=== PATIENT | female | born 1960 | race Caucasian/White ===

== ENCOUNTER 2017-11-01 15:18 | Inpatient (IN) | payer OTHER ==
[~2017-11-01] VITALS: Ht 165.1 cm; Wt 104.3 kg
[~2017-11-01 15:18] MED LIST: ABILIFY PO; ABILIFY20 MG PO; ACETAMINOPHEN; ACETAMINOPHEN-1 EAC1 PO; ACYCLOVIR 800800 M1 PO; ADVAIR 250-501 EACH; ADVAIR 250-501 EACH IH; ADVAIR 250-501 EACH INH; ADVAIR 250-501 EACH PO; ALBUTEROL INH; ALBUTEROL INHAL17 GM IH; ALBUTEROL NEB; ALBUTEROL2.5 MG/31; ALBUTEROL2.5 MG/31 IH; ALLEGRA-D 24 H1 EACH PO; AMBEREN PO; AMBIEN 10 MG TA10 MG PO; AMLODIPINE BESY10 MG; APAP500; APAP500 PO; B COMPLEX WITH1 EACH PO; B COMPLEX-VITA1 EACH; B-COMPLEX 100400 MC1 PO; BENZONATATE100 MG; BENZTROPINE MESY2 MG; BENZTROPINE MESY2 MG PO; BISA-LAX5 MG PO; BUTALBITAL-APA1 EAC1 PO; CALTRATE-600 W1 EACH PO; CELEBREX 200 M200 MG PO; CINNAMON; CINNAMON PO; CIPROFLOXACIN500 M1 PO; CLONAZEPAM 1 MG1 M1; CLONAZEPAM 1 MG1 M1 PO; CRESTOR; CRESTOR20 MG; CRESTOR20 MG PO; CYMBALTA PO; CYMBALTA30 MG PO; CYMBALTA60 MG; CYMBALTA60 MG PO; DESYREL100 MG; DESYREL100 MG PO; DESYREL50 MG PO; DIAZEPAM 2MG TAB2 MG PO; DIAZEPAM 5 MG5 M1 PO; DILTIAZEM 24HR180 MG PO; DILTIAZEM ER120 M1 PO; DILTIAZEM ER180 M1; DIPHENHYDRAMINE25 M3 PO; DOXYCYCLINE 10100 MG PO; DULCOLAX; DULCOLAX5 MG PO; ECONAZOLE NITRA85 GM; FIORICET 50-321 EACH; FIORICET 50-321 EACH PO; FIORICET PO; FISH OIL 1,0001 EAC7 PO; FISH OIL 1,001000 M1; FISH OIL 1,001000 M1 PO; FISHOIL; FLAXSEED OIL1000 MG; FLAXSEED OIL1000 MG PO; FLONASE 0.05%50 MCG NASAL; FUROSEMIDE 80 M80 MG PO; GABAPENTIN100 MG PO; GERI-LANTA LIQ355 ML; GLIPIZIDE ER10 MG; GLIPIZIDE ER10 MG PO; GLIPIZIDE XL10 MG PO; GLUCOPHAGE1000 MG PO; GLUCOPHAGE500 MG PO; GLUCOTROL10 MG PO; GLUMETZA500; GLUMETZA500 PO; GLYCOLAX POWDER17 G1 PO; HYDROCODON-ACE1 EAC7; HYDROCODON-ACE1 EAC8 PO; HYDROCODONE-AP1 EAC6; HYDROXYZINE; HYDROXYZINE HCL50 MG PO; HYDROXYZINE PAM50 MG PO; IBUPROFEN 600600 M1 PO; IMITREX 50 MG T50 M1 PO; IMODIUM A-D1 MG/5 ML PO; IMODIUM ADVANC1 EAC1 PO; INVEGA9 MG PO; IRON325; JANUVIA 50 MG T50 M1; JANUVIA100 MG PO; KENALOG60 GM; KETOCONAZOLE60 GM; LAMICTAL XR100 MG PO; LAMOTRIGINE25 M2 PO; LEVOTHROID; LEVOTHROID PO; LEVOTHYROXIN0.175 MG; LEVOTHYROXINE0.05 MG PO; LIDODERM 5%1 PATC1; LIDODERM 5%1 PATCH TOP; LOPERAMIDE 2 MG2 M1 PO; LOPRESSOR 12.12.5 MG PO; LORATIDINE 10 M10 M1 PO; LORAZEPAM 1 MG T1 M1 PO; LORTABELXR PO; LOXAPINE50 MG PO; MAGNES; MAGNES PO; MAGNESIUM250 M1 PO; MECLIZINE HCL12.5 MG PO; MIDRIN CAPSULE1 CAP PO; MIRALAX255 GM; MIRALAX255 GM PO; MOBIC7.5 MG PO; MOM; MOM PO; MUCINEX D TABL1 EACH PO; MUCINEX600 MG PO; MULTIVITAMINS PO; MYLANTA 12 OZ355 M1; MYLANTA 12 OZ355 M1 PO; NAPRELAN500 M1 PO; NAPROSYN500 MG PO; NEURONTIN 400400 M1; NEURONTIN 400400 M1 PO; NEURONTIN600 MG PO; NEXIUM40 MG; NEXIUM40 MG PO; NIACIN 500 MG500 M1 PO; NIACOR500 MG PO; NIZORAL120 ML; NORCO 5-325 TA1 EACH; NORCO 5-325 TA1 EACH PO; NOVOLOG100 UNIT/1; OXYCODONE HCL5 M1 PO; OYSTER SHELL C1 EA12; OYSTER SHELL C1 EA12 PO; PERCOCET 5-3251 EACH PO; PLAVIX; PLAVIX 75 MG TA75 M1 PO; POTASSIUM20 PO; PREDNISONE 10 M10 MG PO; PREDNISONE50 MG PO; PREMARIN; PREMARIN0.625 MG PO; PREMARIN0.9 M1; PREMARIN0.9 MG PO; PRINIVIL; PRINIVIL10 MG PO; PRINIVIL20 MG PO; PROAIR HFA8.5 GM INH; PROTONIX40 M2 PO; PROVENTIL; PROVERA5 MG PO; QUALAQUIN324 MG; QUALAQUIN324 MG PO; QUESTRAN LIGHT P4 GM PO; QUININE; ROBITUSSIN15 MG/5 M1 PO; ROZEREM 8 MG TAB8 MG PO; SENEXON-S TABL1 EACH; SENNA PO; SEROQUEL200 MG PO; SKELAXIN 800 M800 M1 PO; SYMBICORT160 MCG/4.; SYNTHROID100 MCG PO; SYSTANE 0.3-0.1 EACH OPHTHALMIC; SYSTANE GEL10 GM; TESSALON PERLE100 MG PO; TIROSINT100 MCG PO; TRAZODONE HCL50 MG PO; TRIAMCINOLONE A15 G1; VALIUM2 MG PO; VALIUM5 MG PO; VENTOLIN HFA INH8 GM; VENTOLIN17 GM; VENTOLIN17 GM INH; VISTARIL PO; VITAMIN A & D OI2 OZ; VITAMIN D-32000 UNIT; VITAMIN D1000 UNI1 PO; VITAMIN D31000 UNI2 PO; ZANTAC 150MG T150 M1 PO; ZPAK; ZPAK PO; ZYRTEC10 M2 PO; [UNRECOGNIZED DRUG - OTHER]; [UNRECOGNIZED DRUG - OTHER]; [UNRECOGNIZED DRUG - OTHER] PO; [UNRECOGNIZED DRUG - OTHER] TP
[2017-11-01 15:34] VITALS: BP 122/69
[2017-11-01 16:39] LABS: ABSOLUTE NEUTROPHILS 6.8 thou/uL (1.4-8.2); HEMATOCRIT 43.7 % (37.0-47.0); HEMOGLOBIN 14.9 gm/dL (12.0-15.0); MCH 32.4 pg (26.0-34.0); MCHC 34.1 g/dL (28.0-37.0); MCV 94.8 fL (80.0-100.0); PLATELET COUNT 267 thou/uL (150-400); RBC 4.61 mil/uL (4.20-5.00); RDW 14.2 % (10.5-14.5); WBC 8.7 thou/uL (4.0-11.0)
[2017-11-01 16:52] LABS: CALCIUM 9.5 mg/dL (8.5-10.1); CREATININE 1.2 mg/dL (0.6-1.0); POTASSIUM 4.6 mmol/L (3.5-5.1)
[2017-11-01 18:04] LABS: URINE BILIRUBIN NEGATIVE (Negative); URINE BLOOD NEGATIVE (Negative); URINE CLARITY CLEAR; URINE COLOR YELLOW; URINE GLUCOSE-RANDOM* 3+ (Negative); URINE KETONES NEGATIVE (Negative); URINE LEUKOCYTES-REFLEX NEGATIVE (Negative); URINE PROTEIN (DIPSTICK) NEGATIVE (Negative); URINE SPECIFIC GRAVITY 1.015 (1.005-1.035); URINE UROBILINOGEN 0.2 E.U./dl (0.2-1.0)
[2017-11-01 18:09] LABS: URINE NITRITE-REFLEX POSITIVE (Negative)
[2017-11-01 18:17] LABS: CASTS None Seen /LPF (None Seen); CRYSTALS None Seen /LPF (None Seen); SQUAMOUS 0-3 Few /LPF (0-3)
[2017-11-01 18:18] LABS: URINE WBC-REFLEX 6-15 Few /HPF (0-5)
[2017-11-01 18:19] LABS: BACTERIA-REFLEX >30 Many /HPF (None Seen); URINE RBC None Seen /HPF (0-2)
[2017-11-01] MEDS ORDERED: SYNTHROID88 MCG PO (18:37)
[2017-11-01] MEDS ORDERED: MAGOX 400400 MG PO (18:38)
[2017-11-01] MEDS ORDERED: MICONAZOLE 3 2200 M1 VAG (18:39)
[2017-11-01] MEDS ORDERED: LOXAPINE10 MG PO (18:41)
[2017-11-01] MEDS ORDERED: TOPROL XL25 MG PO (18:42)
[2017-11-01] MEDS ORDERED: DEPAKOTE ER500 MG PO (18:44)
[2017-11-01] MEDS ORDERED: ZOCOR20 MG PO (18:45)
[2017-11-01] MEDS ORDERED: QUETIAPINE FUM100 MG PO (18:46)
[2017-11-01] MEDS ORDERED: TOPAMAX 100 MG100 MG PO (18:47)
[2017-11-01] MEDS ORDERED: DULCOLAX5 MG PO (18:47)
[2017-11-01] MEDS ORDERED: PHENERGAN 25 MG25 M1 PO (18:57)
[2017-11-01] MEDS ORDERED: IBUPROFEN 800800 M1 PO (18:57)
[2017-11-01] MEDS ORDERED: SEROQUEL 50 MG50 MG PO (18:58)
[2017-11-01] MEDS ORDERED: ATIVAN1 MG PO (19:03)
[2017-11-01] MEDS ORDERED: PULMICORT0.5 MG/22 INH (19:04)
[2017-11-01] MEDS ORDERED: HUMALOG100 UNIT/1 SUBQ (19:05)
[2017-11-01] MEDS ORDERED: LANTUS100 UNIT/M SUBQ (19:05)
[2017-11-01] MEDS ORDERED: NOVOLOG100 UNIT/1 SUBQ (19:09)
[2017-11-01] MEDS ORDERED: TRAMADOL 50 MG50 MG PO (19:10)
[2017-11-01] MEDS ORDERED: NYAMYC15 GM TOP (19:11)
[2017-11-01] MEDS ORDERED: DUONEB 2.5-0.5 M3 ML INH (19:13)
[2017-11-01] MEDS ORDERED: LMX 430 GM (19:15)
[2017-11-01] MEDS ORDERED: COLACE100 MG PO (19:16)
[2017-11-01 20:19] VITALS: BP 137/75
[2017-11-01 22:50] LABS: TSH 2.593 uIU/mL (0.358-3.740)
[2017-11-02 00:02] VITALS: BP 131/76
[2017-11-02 00:02] LABS: BE(vivo) 5.9 mmol/L (-2 to +3); HCO3 31.9 mmol/L (22.0-26.0); PCO2 52.1 mmHg (35.0-45.0); PO2 108.5 mmHg (80.0-100.0); pH 7.405 (7.360-7.450); sO2 97.9 % (92.0-98.0)
[2017-11-02] MEDS ORDERED: CLONAZEPAM 1 MG1 M1 PO (01:21)
[2017-11-02] MEDS ORDERED: LASIX 80 MG TAB80 MG PO (01:23)
[2017-11-02 03:06] VITALS: BP 131/94
[2017-11-02 08:12] VITALS: BP 126/71
[2017-11-02 11:16] VITALS: BP 127/69
[2017-11-02 17:28] VITALS: BP 143/77
[2017-11-03 03:56] VITALS: BP 112/87
[2017-11-03 05:23] LABS: HEMATOCRIT 33.3 % (37.0-47.0); MCH 30.6 pg (26.0-34.0); MCHC 33.2 g/dL (28.0-37.0); PLATELET COUNT 224 thou/uL (150-400); RBC 3.62 mil/uL (4.20-5.00); RDW 14.5 % (10.5-14.5); WBC 8.8 thou/uL (4.0-11.0)
[2017-11-03 05:27] LABS: HEMOGLOBIN 11.1 gm/dL (12.0-15.0)
[2017-11-03 05:36] LABS: MAGNESIUM 1.6 mg/dL (1.8-2.4); POTASSIUM 4.1 mmol/L (3.5-5.1)
[2017-11-03 07:29] VITALS: BP 119/52
[2017-11-03 08:16] LABS: ABSOLUTE NEUTROPHILS 5.5 thou/uL (1.4-8.2); METAMYELOCYTES 3 %
[2017-11-03 08:17] LABS: ANISOCYTOSIS SLIGHT
[2017-11-03 11:33] VITALS: BP 131/84
[2017-11-03 15:12] VITALS: BP 116/59
[2017-11-03 19:26] VITALS: BP 130/58
[2017-11-04 04:05] VITALS: BP 128/77
[2017-11-04 06:01] LABS: HEMATOCRIT 30.1 % (37.0-47.0); HEMOGLOBIN 10.1 gm/dL (12.0-15.0); MCH 31.1 pg (26.0-34.0); MCHC 33.7 g/dL (28.0-37.0); MCV 92.3 fL (80.0-100.0); RBC 3.26 mil/uL (4.20-5.00); RDW 14.4 % (10.5-14.5)
[2017-11-04 06:15] LABS: CALCIUM 8.8 mg/dL (8.5-10.1); CREATININE 0.8 mg/dL (0.6-1.0); POTASSIUM 3.9 mmol/L (3.5-5.1)
[2017-11-04 07:30] VITALS: BP 126/77
[2017-11-04 11:30] VITALS: BP 140/80
[2017-11-04] MEDS ORDERED: BACTRIM DS TAB1 EACH PO (14:15)
[2017-11-04] MEDS ORDERED: DEPAKOTE500 MG PO (14:16)
== END 2017-11-04 17:41 | DRG 683 ==
LOC: ER 15:18 → 3W 19:36 → EROBS 19:36 → 3W 20:22
PROVIDERS: Emergency Medicine; Hospitalist; Nurse Practitioner; Nurse Practitioner Acute Care
DX: N17.9 Acute kidney failure, unspecified (principal); N39.0 Urinary tract infection, site not specified; E11.65 Type 2 diabetes mellitus with hyperglycemia; E03.9 Hypothyroidism, unspecified; E78.5 Hyperlipidemia, unspecified; I10 Essential (primary) hypertension; F31.9 Bipolar disorder, unspecified; F25.0 Schizoaffective disorder, bipolar type; F41.9 Anxiety disorder, unspecified; J44.9 Chronic obstructive pulmonary disease, unspecified; M19.90 Unspecified osteoarthritis, unspecified site; B99.8 Other infectious disease; Z16.39 Resistance to other specified antimicrobial drug; Z86.73 Personal history of transient ischemic attack (TIA), and cerebral infarction without residual deficits; Z79.4 Long term (current) use of insulin; Z88.6 Allergy status to analgesic agent; Z88.1 Allergy status to other antibiotic agents; Z88.0 Allergy status to penicillin; Z88.8 Allergy status to other drugs, medicaments and biological substances
CPT/HCPCS: 10779

== ENCOUNTER 2018-06-13 12:18 | Inpatient (IN) | payer OTHER ==
[~2018-06-13] VITALS: Ht 154.9 cm; Wt 81.6 kg
[2018-06-13 12:18] VITALS: BP 145/74
[~2018-06-13 12:18] MED LIST changes: -AMLODIPINE BESY10 MG; +AMLODIPINE BESY10 MG PO; +ATIVAN1 MG PO; +BACTRIM DS TAB1 EACH PO; +COLACE100 MG PO; +DEPAKOTE ER500 MG PO; +DEPAKOTE500 MG PO; +HUMALOG100 UNIT/1 SUBQ; +IBUPROFEN 800800 M1 PO; +IPRAT-ALBUT 0.5-3 ML INH; +LANTUS100 UNIT/M SUBQ; +LASIX 80 MG TAB80 MG PO; +LMX 430 GM; +LOXAPINE10 MG PO; +MAGOX 400400 MG PO; +MICONAZOLE 3 2200 M1 VAG; +NOVOLOG100 UNIT/1 SUBQ; +NYAMYC15 GM TOP; +PHENERGAN 25 MG25 M1 PO; +PULMICORT0.5 MG/22 INH; +QUETIAPINE FUM100 MG PO; -SENEXON-S TABL1 EACH; +SENEXON-S TABL1 EACH PO; +SEROQUEL 50 MG50 MG PO; +SYNTHROID100 MC1 PO; +TOPAMAX 100 MG100 MG PO; +TOPROL XL25 MG PO; +TRAMADOL 50 MG50 MG PO; +ZOCOR20 MG PO
[2018-06-13 12:51] LABS: HEMATOCRIT 44.7 % (37.0-47.0); HEMOGLOBIN 14.8 gm/dL (12.0-15.0); MCH 29.8 pg (26.0-34.0); MCHC 33.2 g/dL (28.0-37.0); MCV 89.8 fL (80.0-100.0); PLATELET COUNT 167 thou/uL (150-400); RBC 4.97 mil/uL (4.20-5.00); RDW 16.5 % (10.5-14.5); WBC 9.9 thou/uL (4.0-11.0)
[2018-06-13 12:57] LABS: ANION GAP 6 mmol/L (7-16); BUN 27 mg/dL (7-18); CALCIUM 9.8 mg/dL (8.5-10.1); CHLORIDE 101 mmol/L (98-107); CO2 34 mmol/L (21-32); CREATININE 1.5 mg/dL (0.6-1.0); GLUCOSE 158 mg/dL (74-106); POTASSIUM 5.3 mmol/L (3.5-5.1); SODIUM 141 mmol/L (136-145)
[2018-06-13 13:06] LABS: ALBUMIN 3.4 g/dL (3.4-5.0); MAGNESIUM 1.7 mg/dL (1.8-2.4); SGOT 14 U/L (15-37); SGPT 13 U/L (30-65); TOTAL BILIRUBIN 0.3 mg/dL (<0.1-1.0); TOTAL PROTEIN 8.9 g/dL (6.4-8.2); TROPONIN-I <0.06 ng/mL (<0.06)
[2018-06-13 13:17] LABS: ABSOLUTE NEUTROPHILS 7.6 thou/uL (1.4-8.2); PLATELET ESTIMATE NORMAL
[2018-06-13 13:19] LABS: URINE BILIRUBIN NEGATIVE (Negative); URINE BLOOD NEGATIVE (Negative); URINE CLARITY CLEAR; URINE COLOR YELLOW; URINE GLUCOSE-RANDOM* NEGATIVE (Negative); URINE KETONES TRACE (Negative); URINE LEUKOCYTES-REFLEX NEGATIVE (Negative); URINE NITRITE-REFLEX POSITIVE (Negative); URINE PROTEIN (DIPSTICK) NEGATIVE (Negative); URINE SPECIFIC GRAVITY 1.015 (1.005-1.035); URINE UROBILINOGEN 0.2 E.U./dl (0.2-1.0)
[2018-06-13 13:23] LABS: BACTERIA-REFLEX >30 Many /HPF (None Seen); HYALINE CASTS 0-3 Few /LPF (None Seen); SQUAMOUS 0-3 Few /LPF (0-3)
[2018-06-13 13:24] LABS: CRYSTALS None Seen /LPF (None Seen); URINE RBC None Seen /HPF (0-2); URINE WBC-REFLEX 0-5 Rare /HPF (0-5)
[2018-06-13] MEDS ORDERED: UNICOMPLEX M TA1 TA1 PO (13:28)
[2018-06-13 13:29] LABS: AMP/METHAMP Negative (Negative); BARBITURATES Negative (Negative); BENZODIAZEPINES POSITIVE (Negative); COCAINE Negative (Negative); METHADONE Negative (Negative); OPIATES Negative (Negative); PCP Negative (Negative)
[2018-06-13] MEDS ORDERED: ALLEGRA-D 12 H1 EAC1 PO (13:29)
[2018-06-13] MEDS ORDERED: VITAMINC500 PO (13:29)
[2018-06-13] MEDS ORDERED: OXYBUTYNIN ER 55 M1 PO (13:29)
[2018-06-13] MEDS ORDERED: HALOPERIDOL10 MG PO (13:30)
[2018-06-13] MEDS ORDERED: LEVSIN-SL0.125 MG SUBLING (13:33)
[2018-06-13] MEDS ORDERED: LOPERAMIDE 2 MG2 M1 PO (13:33)
--- NOTE | 2018-06-13 13:40 | EKG ---
[place] [address] [facility] [place] [address] ELECTROCARDIOGRAM REPORT Name: IRENE SIMS [facility] [id number] Admission: 06/13/18 Attend Phys: Discharge: Date of : 58 Report #: [id number] THIS REPORT FOR: //name// [facility] ED Test Date: 2018-06-13 Test Time: 12:41:15 Pat Name: IRENE SIMS Department: Room: Gender: F Radiographic Technologist: YESSENIA : 1960 Requested By: Jose Kelly Order Number: [id number] MD: Corey Juan Measurements Intervals [place] Rate: 101 P: 56 NC: 187 QRS: 39 QRSD: 150 T: -26 QT: 403 QTc: 523 Interpretive Statements Sinus tachycardia Right bundle branch block Compared to ECG 09/30/2017 13:04:10 Sinus rhythm no longer present Electronically Signed On 06-13-2018 13:40:48 BRAZER PRODUCTION LINE by Corey Juan [email or web address] <ELECTRONICALLY SIGNED> By: Corey Juan MD 06/13/18 1340 1241 1241 Corey Juan MD /[place]
[2018-06-13] MEDS ORDERED: NOVOLOG100 UNIT/1 SUBQ (14:15)
[2018-06-13] MEDS ORDERED: LIDOCAINE TOP (14:19)
[2018-06-13] MEDS ORDERED: CYMBALTA60 MG PO (14:20)
[2018-06-13] MEDS ORDERED: NYAMYC15 GM TOP (14:20)
[2018-06-13 14:36] VITALS: BP 128/64
[2018-06-13 15:56] VITALS: BP 132/66
--- NOTE | 2018-06-13 16:47 | NUR ---
ADM PT CAME IN FROM ER. A/O X4, CALM AND COOPERATIVE. PT ORIENTED TO ROOM. WILL CONTINUE TO MONITOR.
[2018-06-13 17:00] VITALS: BP 116/68
[2018-06-13 19:46] VITALS: BP 130/71
[2018-06-14 03:00] VITALS: BP 116/55
--- NOTE | 2018-06-14 06:00 | NUR ---
Pt. rested quietly at intervals during the night when checked on during frequent rounds. She did start to become restless this am and was yelling out for her parents. Calmed down later. Bed alarm is on.
[2018-06-14 07:45] VITALS: BP 122/55
[2018-06-14 08:48] LABS: CALCIUM 8.8 mg/dL (8.5-10.1); CREATININE 1.1 mg/dL (0.6-1.0)
--- NOTE | 2018-06-14 11:36 | NUR ---
TOWARDS POC PT A/O X4. CONFUSED AT TIMES. EASILY REORIENTED, CALM AND COOPERATIVE. OUT 1000, VOIDING WELL. WOUND CARE AND DRESSING DONE. HOME MEDS GIVEN, TOLERATING WELL. WILL CONTINUE TO MONITOR.
[2018-06-14 13:55] VITALS: BP 143/67
--- NOTE | 2018-06-14 14:23 | NUR ---
PT ADMITTED RELATED TO AMS, DEHYDRATION. CM REVIEWED CHART AND SPOKE WITH CARE TEAM. CM MET WITH PT AT BEDSIDE THIS DAY. PT IS A&O X4. CM ROLE INTRODUCED. PT INDICATED SHE LIVES AT [facility]. 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 PT INDICATED SHE PLANS TO RETURN TO [facility] ONCE MEDICALLY STABLE. CM CALLED AND SPOKE WITH PT'S SON GRACE AND HE CONFIRMED THE ABOVE. CM SENT CLINICAL UPDATE TO [facility]. CM TO FOLLOW INDICATED WITH DC PLANNING.
--- NOTE | 2018-06-14 14:32 | NUR ---
WOUND CONSULT: PT. WAS SEEN TODAY BY DR. RIOS AND MYSELF. PT. HAS AN UNSTAGABLE PRESSURE ULCER TO HER SACRUM. PT. WOUND IS WET AND MOIST AT THIS TIME BUT, NO SIGNIFICANT SIGNS OF INFECTION NOTED. RECOMMENDATIONS: WOUND CARE TO SACRUM: GENTLY CLEANSE AREA WITH WOUND CLEANSER OR NORMAL SALINE, PACK WITH DAKIN SOAKED KERLIX, COVER WITH ABD, SECURE WITH TAPE, COMPLETE CARES BID. TURN Q2 HOURS KEEP PT. OFF WOUNDS MUCH POSSIBLE KEEP ON SHERMAN MATRESS. PT. AND STAFF NURSE WERE INSTRUCTED ON WOUND CARE.
[2018-06-14 19:47] VITALS: BP 139/61
[2018-06-15 03:59] VITALS: BP 125/58
[2018-06-15 07:15] VITALS: BP 141/64
--- NOTE | 2018-06-15 07:16 | NUR ---
Psych consult called to Dr. Soni's office and fax facesheet to [phone] per instruction. Pt. has slept well during the night. She has been calm and cooperative. O2 at 2L/NC ( baseline) and maintaining O2 sat in the upper 90's. Denies shortness of breath. She has been assisted to reposition. Wound care done at . Bed alarm on. Will continue to monitor.
--- NOTE | 2018-06-15 07:39 | HC ---
[facility] [place] [address] CONSULTATION Name: IRENE SIMS Room #: 454-P [facility] IN .R.#: [id number] Admission: 06/13/18 Attend Phys: Karl Biswas MD Discharge: Date of : 58 Report #: [id number] THIS REPORT FOR: //name// CC: Karl Sumner DATE OF SERVICE: 06/14/2018 CHIEF COMPLAINT: Sacral pressure ulceration. HISTORY OF PRESENT ILLNESS: This is a 58-year-old female patient admitted to the hospital with mental status changes and some evidence of acute kidney injury. She is noted to have a sacral pressure ulceration. I have been asked to see her in this regard. The patient is not able to provide much information about herself. She does seem to indicate that she has pain in her sacral region. It is unknown as to when this problem area began. She was originally admitted with mental status changes and lethargy and poor oral intake. PAST MEDICAL HISTORY: Positive for type 2 diabetes mellitus, hypothyroidism, hyperlipidemia, hypertension, history of CVA, bipolar disorder, PTSD, schizophrenia, anxiety, COPD. FAMILY HISTORY: Unobtainable. SOCIAL HISTORY: Negative per her chart, negative for alcohol or tobacco use. ALLERGIES: Include MACRODANTIN, AVELOX, ACETAMINOPHEN, AMOXICILLIN, BENZTROPINE, CODEINE, LITHIUM, PENICILLIN, RISPERDAL, SERTRALINE, ZIPRASIDONE, COMPAZINE, IBUPROFEN, ASPIRIN. MEDICATIONS: Include clonazepam, hydroxyzine, amlodipine, furosemide, trazodone, Senexon, Synthroid, Toprol-XL, Seroquel, Motrin, NovoLog, ipratropium and albuterol, oxybutynin, Lindsey, Levsin, Imodium, NovoLog, nystatin powder, Cymbalta, ProAir, Protonix, Neurontin, Glucophage, Flonase, K-Dur, Mag-Ox, Zocor, Dulcolax, Phenergan, Pulmicort, Lantus, Ultram, Colace, Unicomplex-M, vitamin C and haloperidol. REVIEW OF SYSTEMS: Unobtainable due to the patient's mental status. PHYSICAL EXAMINATION: VITAL SIGNS: At this time include pulse 94, respiratory rate 18, blood pressure 143/67, temperature 98.4. GENERAL: This is a chronically ill-appearing female patient who appears to be in minimal distress. HEENT: Head normocephalic. Nose and throat are clear. NECK: [place] [id number] CONSULTATION Name: IRENE SIMS Room #: 454-P [facility] IN [facility]#: [id number] Admission: 06/13/18 Attend Phys: Karl Biswas MD Discharge: Date of : 58 Report #: [id number] LUNGS: Clear. HEART: Regular rhythm. ABDOMEN: Soft. Bowel sounds present. EXTREMITIES: Sacral gluteal region demonstrates an unstageable pressure ulcer of the sacral gluteal region. It appears to be mostly superficial. There is a little bit of necrotic tissue on the surface that is wiped away with 4 x 4 gauze. The patient has no tunneling, undermining or exposure of deep structures that are observable. Tissue does not feel boggy or appear to be infected. EXTREMITIES: Lower extremities without evidence of ulceration. NEUROLOGIC: The patient seems to move symmetrically. She is disoriented or confused. LABORATORY DATA: Sodium 140, potassium 4.0, chloride 102, CO2 of 34, BUN 21, creatinine 1.1, glucose 132, calcium is 8.8. White blood cell count 9.9 with hemoglobin 14.8. CLINICAL IMPRESSION: 1. Unstageable sacral pressure ulceration. 2. Acute mental status changes. 3. Type 2 diabetes mellitus. 4. Dehydration, likely secondary to poor oral intake. 5. Mental health issues detailed above. RECOMMENDATIONS: At this point in time, we will use quarter strength Dakin's moist gauze dressing b.i.d. to the sacral region. She will need a low air loss mattress and q. 2 hour turning and repositioning. She will need aggressive nutritional support to encourage wound healing and maintain ideal glycemic control. I am not sure that she requires a surgical debridement at this point in time. We will follow her along and see how she does after "cleaning her up" with some dressing changes. I appreciate being asked to see her in consultation. <ELECTRONICALLY SIGNED> By: Cyril Looney MD 06/15/18 0739 1807 2234 Cyril Looney MD /nt
--- NOTE | 2018-06-15 09:59 | NUR ---
WOUND FOLLOW UP: PT. WAS SEEN TODAY BY DR. DAMIAN AND MYSELF. PT. WOUND TO HER SACRUM IS RESPONDING WELL TO THE DAKIN'S. IT IS NOT MOIST YESTERDAY'S ASSESMENT. RECOMMENDATIONS: CONTINUE WITH CURRENT PLAN OF CARE. PT. AND STAFF NURSE WERE INSTRUCTED ON PLAN OF CARE.
--- NOTE | 2018-06-15 11:54 | NUR ---
PATIENT A/OF FROM [facility], PAIN IN SACRAL AREA RELATING WOUND. EXTERNAL FEMALE CATHETER IN PLACE. PT STATES SHE USES A WHEELCHAIR AT FACILITY. DENIES HALLUCINATIONS.PT STATES SHE HEARS VOICES WILL CONTINUE TO MONITOR. STAFF MADE AWARE OF PT HEARING VOICES. TURNED Q2HR TOLERATED. INDEPENTENT WITH MEALS. USES CALL LIGHT APPROPRIATELY. CALL LIGHT IN REACH.
[2018-06-15 15:09] VITALS: BP 138/53
[2018-06-15 20:30] VITALS: BP 116/48
--- NOTE | 2018-06-16 03:04 | NUR ---
Assumed care at 1845. Pt denies chest pain. She uses wheelchair at facility but she has been bed bound. Sacral wound dressing has been changed. Shes AOX2. She is on 2L NC. Has an external female catheter. ACHS. She hasnt stated that she has been hearing voices like the previous nurse had mentioned. Gave fentnyl for pain. Bed is in lowest position. Call light within reach. Will continue to monitor.
[2018-06-16 03:59] VITALS: BP 126/58
[2018-06-16 07:29] VITALS: BP 132/54
--- NOTE | 2018-06-16 11:50 | NUR ---
WOUND FOLLOW UP: PT. WAS SEEN TODAY BY DR. RIOS AND MYSELF. PT. WOUND IS CLINICALLY BETTER TODAY. RECOMMENDATIONS: CONTINUE WITH CURRENT PLAN OF CARE. PT. AND STAFF NURSE WERE INSTRUCTED ON PLAN OF CARE.
--- NOTE | 2018-06-16 14:50 | NUR ---
CARE TEAM INDICATED THAT THEY ANTICIPATE PT WILL LIKELY BE MEDICALLY STABLE TO DISHCARGE BACK TO [facility] TOMORROW. CM TO FOLLOW INDICATED WITH DC PLANNING.
[2018-06-16 15:00] VITALS: BP 117/52
[2018-06-16 19:17] VITALS: BP 126/60
--- NOTE | 2018-06-16 19:51 | NUR ---
QUIET UNEVENTFUL DAY FOR THIS NICE LADY. TURNED Q2H. SACRAL DECUB DRESSING CHANGED. MEDICATED WITH FENTANYL FOR WOUND PAIN AND HAD COMPLETE RELIEF. TOLERATING DIET WELL. GOOD URINE OUTPUT NOTED. EXTERNAL URINARY CATHETER IN PLACE. FALL PRECAUTIONS IN PLACE.
[2018-06-17 03:18] VITALS: BP 108/54
--- NOTE | 2018-06-17 04:39 | NUR ---
Pt. rested quietly at intervals during the night when checked on during frequent rounds. She does c/o sacral pain and was given pain meds (see emar) with some relief noted. Treatment done to sacral wound as ordered.
[2018-06-17 07:15] VITALS: BP 105/56
[2018-06-17 08:02] VITALS: BP 105/56
--- NOTE | 2018-06-17 08:12 | NUR ---
PT PROGRESSING TOWARDS GOALS. PAIN MANAGED WITH MED PRN, TURN Q2H TOLERATED. WOUND CARE PROVIDED.FEMAL EXTERNAL CATHETER FOR INCONTINENCE PLANS TO DC BACK TO [facility]. BED LOCKED, ALARM SET. CALL LIGHT IN REACH.
[2018-06-17] MEDS ORDERED: SEROQUEL 100 M100 M2 PO (08:18)
--- NOTE | 2018-06-17 09:56 | NUR ---
WOUND FOLLOW UP: PT. WAS SEEN TODAY BY DR. RIOS AND MYSELF. PT. WOUND IS CLINICALLY BETTER TODAY. IT IS PROGRESSING TOWARDS HEALING. RECOMMENDATIONS: CONTINUE WITH CURRENT PLAN OF CARE. PT. AND STAFF NURSE WERE INSTRUCTED ON PLAN OF CARE.
--- NOTE | 2018-06-17 12:08 | NUR ---
DISCHARGE ORDERS RECEIVED. PATIENT DISCHARGING TO [facility]. CHART COPIED PER SLOTS MANAGER. ORDERS FAXED TO PRANAY GAITAN FOR [facility]. VERIFIED ORDERS RECEIVED. PER LUCÍA, DISPATCH WITH [email or web address], TRANSPORT TIME FOR PATIENT [id number] HOURS, TRIP #[id number]. [email or web address] DISPATCH CONTACT NUMBER IS . UNIT SW NOTIFIED. UNIT RN NOTIFIED AND CONTACT NUMBER FOR REPORT PROVIDED.
== END 2018-06-17 13:08 | DRG 683 ==
LOC: ER 12:18 → EROBS 14:06 → 4W 16:32
PROVIDERS: Emergency Medicine; ADMIT Hospitalist
DX: N17.9 Acute kidney failure, unspecified (principal); N39.0 Urinary tract infection, site not specified; E11.9 Type 2 diabetes mellitus without complications; E03.9 Hypothyroidism, unspecified; E78.5 Hyperlipidemia, unspecified; I10 Essential (primary) hypertension; F31.9 Bipolar disorder, unspecified; F41.9 Anxiety disorder, unspecified; J44.9 Chronic obstructive pulmonary disease, unspecified; J45.909 Unspecified asthma, uncomplicated; E86.0 Dehydration; E87.5 Hyperkalemia; L89.150 Pressure ulcer of sacral region, unstageable; F20.9 Schizophrenia, unspecified; E66.9 Obesity, unspecified; M19.90 Unspecified osteoarthritis, unspecified site; Z88.6 Allergy status to analgesic agent; Z88.1 Allergy status to other antibiotic agents; Z88.0 Allergy status to penicillin; Z88.8 Allergy status to other drugs, medicaments and biological substances; Z79.899 Other long term (current) drug therapy; Z86.73 Personal history of transient ischemic attack (TIA), and cerebral infarction without residual deficits; Z79.4 Long term (current) use of insulin; Z68.34 Body mass index [BMI] 34.0-34.9, adult
CPT/HCPCS: 10045; 10047

== ENCOUNTER 2018-09-19 20:09 | Inpatient (IN) | payer OTHER ==
[~2018-09-19] VITALS: Ht 165.1 cm; Wt 89.2 kg
[~2018-09-19 20:09] MED LIST changes: +ALLEGRA-D 12 H1 EAC1 PO; +HALOPERIDOL10 MG PO; +LEVSIN-SL0.125 MG SUBLING; +LIDOCAINE TOP; +OXYBUTYNIN ER 55 M1 PO; +SEROQUEL 100 M100 M2 PO; +UNICOMPLEX M TA1 TA1 PO; +VITAMINC500 PO
[2018-09-19 20:11] VITALS: BP 124/67
[2018-09-19] MEDS ORDERED: LASIX 80 MG TAB80 MG PO (20:22)
[2018-09-19] MEDS ORDERED: MAGOX 400400 MG PO (20:22)
[2018-09-19] MEDS ORDERED: POTASSIUM20 PO (20:23)
[2018-09-19] MEDS ORDERED: ALLEGRA-D 12 H1 EAC1 PO ×2 (20:24→23:23)
[2018-09-19] MEDS ORDERED: HALOPERIDOL10 MG PO (20:25)
[2018-09-19] MEDS ORDERED: HYDROXYZINE HCL25 M1 PO (20:26)
[2018-09-19] MEDS ORDERED: SEROQUEL400 MG PO (20:28)
[2018-09-19] MEDS ORDERED: IBUPROFEN 800800 M1 PO (20:29)
[2018-09-19] MEDS ORDERED: PHENERGAN 25 MG25 M1 PO (20:31)
[2018-09-19] MEDS ORDERED: LANTUS100 UNIT/M SUBQ (20:34)
[2018-09-19] MEDS ORDERED: HALDOL DEC100 MG/1 M IM (20:34)
[2018-09-19] MEDS ORDERED: NOVOLOG100 UNIT/1 SUBQ (20:36)
[2018-09-19 20:38] LABS: HEMATOCRIT 36.1 % (37.0-47.0); MCH 30.4 pg (26.0-34.0); MCHC 33.1 g/dL (28.0-37.0); MCV 91.8 fL (80.0-100.0); RBC 3.94 mil/uL (4.20-5.00); RDW 16.2 % (10.5-14.5); WBC 6.9 thou/uL (4.0-11.0)
[2018-09-19] MEDS ORDERED: CYMBALTA60 MG PO (20:38)
[2018-09-19] MEDS ORDERED: DEPAKOTE500 MG PO (20:39)
[2018-09-19 20:43] LABS: ANION GAP 8 mmol/L (7-16); BUN 25 mg/dL (7-18); CALCIUM 9.5 mg/dL (8.5-10.1); CHLORIDE 101 mmol/L (98-107); CO2 34 mmol/L (21-32); CREATININE 1.2 mg/dL (0.6-1.0); GLUCOSE 139 mg/dL (74-106); POTASSIUM 4.2 mmol/L (3.5-5.1); SODIUM 143 mmol/L (136-145)
[2018-09-19 20:45] LABS: URINE BILIRUBIN NEGATIVE (Negative); URINE BLOOD NEGATIVE (Negative); URINE CLARITY CLEAR; URINE COLOR YELLOW; URINE GLUCOSE-RANDOM* NEGATIVE (Negative); URINE KETONES TRACE (Negative); URINE LEUKOCYTES-REFLEX NEGATIVE (Negative); URINE NITRITE-REFLEX NEGATIVE (Negative); URINE PROTEIN (DIPSTICK) NEGATIVE (Negative); URINE SPECIFIC GRAVITY 1.025 (1.005-1.035)
[2018-09-19 20:51] LABS: TROPONIN-I <0.06 ng/mL (<0.06)
[2018-09-19 20:56] LABS: AMP/METHAMP Negative (Negative); BARBITURATES Negative (Negative); BENZODIAZEPINES POSITIVE (Negative); COCAINE Negative (Negative); METHADONE Negative (Negative); OPIATES Negative (Negative); PCP Negative (Negative)
[2018-09-19 22:19] VITALS: BP 117/70
[2018-09-19 22:23] VITALS: BP 104/53
[2018-09-19 22:30] VITALS: BP 112/54
[2018-09-19] MEDS ORDERED: VITAMIN D2000 UNIT PO (23:25)
[2018-09-20 00:15] VITALS: BP 103/51
[2018-09-20 03:39] VITALS: BP 113/56
--- NOTE | 2018-09-20 04:04 | NUR ---
RECEIVED REPORT FROM ER NURSE. PT ARRIVED TO ROOM 360 AROUND 0. ADMISSION HX AND ASSESSMENT COMPLETED. PT VERY DROWSY BUT ARROUSABLE AND ABLE TO ANSWER SOME QUESTIONS. SHE IS ABLE TO FOLLOW SIMPLE COMMANDS. DENIES ANY PAIN. REPOSITIONED TO PREVENT SKIN BREAKDOWN. IVF INFUSING ORDERED. FALL PRECAUTIONS IN PLACE. VSS. AFEBRILE. PROGRESSING VERY SLOWLY TOWARD POC GOALS. WILL CONTINUE TO MONITOR FURTHER.
[2018-09-20 05:44] LABS: CALCIUM 8.3 mg/dL (8.5-10.1); CREATININE 0.9 mg/dL (0.6-1.0); POTASSIUM 4.2 mmol/L (3.5-5.1)
[2018-09-20 07:40] VITALS: BP 146/81
--- NOTE | 2018-09-20 08:35 | NUR ---
ASSESSMENT: CM REVIEWED CHART AND MET WITH PATIENT AT THE BEDSIDE. PT WAS ADMITTED WITH AMS. PT STATES SHE LIVES AT [facility] AND HAS BEEN THERE ABOUT A YEAR. 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 PT REPORTS SHE USES A WHEELCHAIR FOR TRANSPORTATION. CM REVIEWED FACESHEET FROM FACILITY AND HER MOTHER AND SON WERE LISTED. CM ATTEMPTED TO CONTACT PATIENTS MOTHER BUT NUMBER LISTED DOES NOT WORK. CM WAS ABLE TO SPEAK WITH PATIENTS SON WHO REPORTS HE IS NEXT OF KIN BUT REPORTS HE DOES NOT HAVE PAPERWORK. CM CONTACTED TAYLOR [phone] IN ADMISSIONS AT [facility] TO SEE IF PATIENT HAD A GUARDIAN, SHE WAS UNSURE AND GOING TO VERIFY AND CALL BACK CM. CM FAXED UPDATED CLINICAL TO [facility]. PT PLANS ON RETURNING BACK TO [facility] ONCE MEDICALLY STABLE. CM WILL CONTINUE TO FOLLOW TO ASSIST NEEDED.
[2018-09-20 11:32] VITALS: BP 115/59
--- NOTE | 2018-09-20 14:57 | NUR ---
PATIENT HAS RESTED IN BED THROUGH THE DAY. HAD TWO LARGE BM. SHE IS NOTED TO HALLUCINATE THROUGH THE DAY. ONE POINT TELLING THE NURSE " I CAN HEAR MY COUSINS OUT THERE PLANNING TO KILL ME. I NEED TO GET OUT OF HERE" ANOTHER TIME STATING " THEY ARE GOING TO TAKE OUT MY LEFT EYE AND PLANT IT ON MY FORE HEAD THEN REMOVE MY EARS ALSO". PATIENT REASSURED. ON HER MEDS SHE WAS ON A BENZO AND SEROQUEL BOTH WHICH WERE NOT STARTED WHEN SHE WAS ADMITTED. DR BRUCE HAS BEEN CONSULTED WILL AWAIT HER INPUT. WILL CONT TO TURN Q2 AND REEDUCATE.
[2018-09-20 16:48] VITALS: BP 117/60
--- NOTE | 2018-09-20 17:07 | EKG ---
[address] [address] ELECTROCARDIOGRAM REPORT Name: IRENE SIMS Room #: 360- ADM IN M.R.#: [id number] ������������������ Admission: 09/19/18 ������������������ Attend Phys: Karl Biswas MD Discharge: ������������������ Date of : 58 Report #: [id number] ����������������������������������������������������������������� [id number] THIS REPORT FOR: //name// [facility] ED Test Date: 2018-09-19 Test Time: 20:21:24 Pat Name: IRENE SIMS Department: Room: 360 Gender: F Event Executive: TLIA : 1960 Requested By: Medardo Irizarry Order Number: [id number] MD: Georgi De Jesus Measurements Intervals [place] Rate: 95 P: 44 AR: 183 QRS: 4 QRSD: 155 T: 0 QT: 420 QTc: 528 Interpretive Statements Sinus rhythm Right bundle branch block Consider inferior infarct Compared to ECG 06/13/2018 12:41:15 Sinus tachycardia no longer present Electronically Signed On 09-20-2018 17:06:51 CDT by Georgi De Jesus [email or web address] ��������������������������������������������� <ELECTRONICALLY SIGNED> ���������������������������������������� By: Georgi De Jesus MD, [facility] ��������������������������������������������� 09/20/18 1706 20 20 Georgi De Jesus MD, [facility] /EPI
[2018-09-20 19:24] VITALS: BP 123/62
--- NOTE | 2018-09-21 03:11 | NUR ---
PT SR/ST W/BBB ON MONITOR. PT DROWSY BUT EASY TO ARROUSE. PT RESTING IN BED. NEURO REMAINS UNCHANGED ABLE TO ANSWER APPROPRIATELY AT TIMES INTERMITTENT WITH HALLUCINATIONS AND CONFUSION. PT CONTINUES ON 2L OXYGEN PER NC. CONTINUES ON MAINTENANCE IVF.
[2018-09-21 03:15] VITALS: BP 111/59
[2018-09-21 07:38] VITALS: BP 121/70
[2018-09-21 12:22] VITALS: BP 126/71
[2018-09-21] MEDS ORDERED: HALOPERIDOL 5 MG5 MG PO (13:47)
[2018-09-21] MEDS ORDERED: SEROQUEL 100 M100 M1 PO (13:47)
[2018-09-21] MEDS ORDERED: DEPAKOTE500 MG PO (13:47)
[2018-09-21] MEDS ORDERED: LASIX 40 MG TAB40 M2 PO (13:47)
--- NOTE | 2018-09-21 14:32 | NUR ---
care of pt assumed this am @ ~0700. pt noted to be awake and asking about breakfast this am, stating that she would not be consuming the kind of food that was ordred for her yesterday. st made aware of requests and were at beside to see pt this am. pt receiving ivf's at this time. pt denies soa, no co pain and no n/v today. pt co of 7 stools yesterday, and has had x2 stools this am (pt states she does not know when the stool is coming only after she smells it) and request immodium, ordered and given. pt request to make an emergency phone call to the [facility] as that is where she states she had come from when taken to the er but that is not true as she came from [facility] and there she will return today via [employer] van transportation. pt does not like the thickened liquids.
--- NOTE | 2018-09-21 14:47 | NUR ---
on-going assessment: CM REVIEWED CHART AND PT HAS ORDERS TO RETURN TO [facility]. HOLLY CONTACTED LIASON IN ADMISSIONS AT [facility] [phone] WHO REDIRECTED ME TO [facility] [employer] ([phone]) FROM [facility] WHO STATES THEY CAN ACCFEPT PATIENT BACK BUT THEIR VAN FOR TRANSPORTATION IS PICKING UP ANOTHER PATIENT AND TRANSPORTATION WILL NEED TO BE ARRANGED. CM SPOKE WITH CM DIRECTOR AND TRANSPORTATION WAS ARRANGED [facility]IA [facility] DUE TO HER NEED OF OXYGEN. CM ARRANGED TRANSPORTATION THROUGH [facility] AND PICKUP TIME IS BETWEEN 430-5 PM, CM NOTIFIED BEDSIDE RN WELL PROVIDED HER WITH THE NUMBER FOR REPORT. PT IS AGREEABLE FOR DISCHARGE. CM FAXED D/C ORDERS TO [facility] AND CONFIRMED THEY RECEIVED IT. HOLLY ASKED IF PT WANTED CM TO CONTACT HER SON TO NOTIFY HIM AND SHE STATED NO SHE WOULD.
[2018-09-21 16:13] VITALS: BP 127/68
== END 2018-09-21 18:07 | DRG 91 ==
LOC: ER 20:09 → 3W 21:59 → EROBS 21:59 → 3W 22:35
PROVIDERS: Emergency Medicine; Nurse Practitioner Family; ADMIT Hospitalist
DX: G92 Toxic encephalopathy (principal); J96.91 Respiratory failure, unspecified with hypoxia; E11.9 Type 2 diabetes mellitus without complications; F25.9 Schizoaffective disorder, unspecified; E03.9 Hypothyroidism, unspecified; E78.5 Hyperlipidemia, unspecified; I10 Essential (primary) hypertension; F43.10 Post-traumatic stress disorder, unspecified; F31.9 Bipolar disorder, unspecified; F41.9 Anxiety disorder, unspecified; J44.9 Chronic obstructive pulmonary disease, unspecified; M19.90 Unspecified osteoarthritis, unspecified site; T43.595A Adverse effect of other antipsychotics and neuroleptics, initial encounter; Z86.73 Personal history of transient ischemic attack (TIA), and cerebral infarction without residual deficits; Z79.51 Long term (current) use of inhaled steroids; Z79.4 Long term (current) use of insulin; Z79.899 Other long term (current) drug therapy; Z88.6 Allergy status to analgesic agent; Z88.1 Allergy status to other antibiotic agents; Z88.5 Allergy status to narcotic agent; Z88.0 Allergy status to penicillin; Z88.8 Allergy status to other drugs, medicaments and biological substances; Z87.01 Personal history of pneumonia (recurrent); Y92.89 Other specified places as the place of occurrence of the external cause
CPT/HCPCS: 10879

== ENCOUNTER 2019-01-26 13:27 | Inpatient (IN) | payer OTHER ==
[~2019-01-26] VITALS: Ht 165.1 cm; Wt 97.1 kg
--- NOTE | ~2019-01-26 | EMS ---
[address] [address] EMS Patient Care Report Name: IRENE SIMS Room #: REG MEERA [facility]#: [id number] Admission: 01/26/19 ������������������ Attend Phys: Discharge: ������������������ Date of : 58 Report #: [id number] THIS REPORT FOR: //name// Report Transmitted: 01/26/2019 13:50 EMS Care Summary [place], [place]/[facility] Incident [id number] @ 01/26/2019 12:40 Incident [id number] [place] [address] STATION Patient IRENE SIMS Female, 58 Years 1960 Patient Address [address] [place] [address] [place] [address] Patient History Chronic Obstructive Pulmonary Disease (COPD),Hyperlipidemia,Gastro-Esophageal Reflux Disease (GERD),Urinary Tract Infection (UTI),Bipolar II Disorder,Depression,Anxiety,Constipation,Edema,Hypothyroidism,Paranoid Schizophrenia,Type 2 Diabetes,Insomnia, Patient Allergies Other drug allergy, Patient Medications Gabapentin, Proair, Clonazepam, Fluticasone, Lantus, Loperamide, Lidocaine, Haloperidol, Metformin, Vitamin D, Simvastatin, Lindsey, Novolog, Divalproex Sodium, Ibuprofen, Promethazine, Duloxetine, Senna, Tramadol, Trazodone, Chief Complaint AMS (PER STAFF) Disposition Transported No Lights/[place] Dispatch Reason Sick Person Transported To [facility] [address] [place] [address] EMS Patient Care Report Name: IRENE SIMS Room #: REG [facility]#: [id number] Admission: 01/26/19 ������������������ Attend Phys: Discharge: ������������������ Date of : 58 Report #: [id number] Narrative M28 RESPONDED EMERGENT TO A SICK. ON ARRIVAL M28 MADE CONTACT WITH STAFF AND OBTAINED PAPERWORK. PT FOUND SITTING IN A WHEELCHAIR CONSCIOUS AND ALERT TO PERSON PLACE AND EVENT BUT NOT TO TIME. PT SELF-MAINTAIING A CLEAR AND PATENT AIRWAY, BREATHING RATE AND DEPTH ADEQUATE, RADIAL PULSE PRESENT STEADY AND STRONG, SKIN PWD, CAP REFILL UNDER 2 SECONDS. C/C AMS AND TREMORS THAT WERE NOT PT BASELINE PER STAFF. PT LOADED ONTO COT USING THE STAND PIVOT AND SIT METHOD, PT ASSISTED BY M28. PT SECURED TO COT USING SIDE LOCKING RAILS AND SEATBELTS. PT MOVED TO AMBULANCE AND LOADED WITHOUT ISSUE BY M28. VITALS TAKEN NOTED. PT PLACED ON 02 DUE TO LOW O2 SATURATION READING. IV ATTEMPTED FOR MED/FLUID ACCESS. TRANSPORT INITIATED TO [facility]. RADIO REPORT GIVEN EN ROUTE. VITALS AND PT CONDITION MONITORED THROUGHOUT TRANSPORT WITHOUT INCIDENT. ON ARRIVAL TO ED, PT MOVED FROM AMBULANCE TO BED 8 DIRECTED WITHOUT ISSUE. PT MOVED FROM COT TO THE BED USING THE SHEET DRAW METHOD BY M28 AND ED STAFF. PT SECURED TO BED USING LOCKING SIDE RAILS. CARE TRANSFERRED TO ED STAFF. REPORT GIVEN, SIGNATURES OBTAINED. RN SIGNED ON PT BEHALF DUE TO AMS AND PAPERWORK INDICATING PT DID NOT HAVE DECISION MAKING CAPACITY. M28 RETURNED TO SERVICE. Initial Vitals @13:13P: 126,R: 16,BP: 103/54,Pain: 0/10,GCS: 14,Glucose: 229,SpO2: 97,Revised Trauma: 12, @13:21P: 124,R: 16,BP: 113/69,Pain: 0/10,GCS: 14,Temp: 100.7F,CO: 0,SpO2: 96,Revised Trauma: 12, @13:01P: 129,R: 16,BP: 121/61,Pain: 0/10,GCS: 14,SpO2: 93,Revised Trauma: 12,IL Suspected: false Assessments @12:48MENTAL:Person Oriented,Event Oriented,Place Oriented,SKIN:HEENT:Head/Face: No Abnormalities,Neck/Airway: No Abnormalities,LUNG SOUNDS:General: No Abnormalities,ABDOMEN:General: No Abnormalities,PELVIS//GI:Incontinence,EXTREMITIES:Right Arm: Other,Left Leg: Other,Right Leg: Edema,Left Leg: Edema,Left Arm: Edema,Left Arm: Other,Right Leg: Other,Right Arm: Edema,Capillary Refill: Left Upper: < 2 Sec,PULSE:Radial: 2+ Normal,NEURO:Tremors,@13:21MENTAL:Person Oriented,Place Oriented,Event Oriented,SKIN:HEENT:Head/Face: No Abnormalities,Neck/Airway: No Abnormalities,LUNG SOUNDS:General: No Abnormalities,ABDOMEN:General: No Abnormalities,PELVIS//GI:Incontinence,EXTREMITIES:Right Leg: Edema,Right Arm: Paralysis,Right Leg: Other,Left Arm: Other,Left Leg: Edema,Left Leg: Other,Left Arm: Edema,Right Arm: Other,Capillary Refill: Left Upper: < 2 Sec,PULSE:Radial: 2+ Normal,NEURO: Impression Altered Mental Status [facility] [address] [place] [address] EMS Patient Care Report Name: IRENE SIMS Room #: REG MEERA M.R.#: [id number] Admission: 01/26/19 ������������������ Attend Phys: Discharge: ������������������ Date of : 58 Report #: [id number] Procedures @12:48ALS AssessmentResponse: UnchangedSucceeded@13:01ALS AssessmentResponse: UnchangedSucceeded@13:21ALS AssessmentResponse: UnchangedSucceeded@13:13ALS AssessmentResponse: UnchangedSucceeded@13:01Oxygen FlowRate: 4 Device: Nasal Cannula (NC) Response: ImprovedSucceeded@12:53StretcherResponse: Unchanged@13:013-Lead ECGResponse: UnchangedSucceeded@13:05Saline Lock 0cc (20 ga) Site: Hand-LeftResponse: UnchangedFailed@13:10Saline Lock 0cc (20 ga) Site: Forearm-LeftResponse: UnchangedFailed Timeline 12:38,Call Received 12:38,Dispatch Notified 12:40,Dispatched 12:40,En Route 12:45,On Scene 12:48,At Patient 12:48,ALS Assessment,Response: UnchangedSucceeded, 12:53,Stretcher,Response: Unchanged 13:01,ALS Assessment,Response: UnchangedSucceeded, 13:01,3-Lead ECG,Response: UnchangedSucceeded, 13:01,BP: 121/61 M,PULSE: 129,RR: 16 R,SPO2: 93 Ox,ETCO2: ,BG: ,PAIN: 0,GCS: 14, 13:01,Oxygen FlowRate: 4 Device: Nasal Cannula (NC) Response: ImprovedSucceeded, 13:05,Saline Lock 0cc 20 ga Site: Hand-Left,Response: UnchangedFailed, 13:10,Saline Lock 0cc 20 ga Site: Forearm-Left,Response: UnchangedFailed, 13:13,ALS Assessment,Response: UnchangedSucceeded, 13:13,BP: 103/54 M,PULSE: 126,RR: 16 R,SPO2: 97 Ox,ETCO2: ,B,PAIN: 0,GCS: 14, 13:14,Depart Scene 13:21,ALS Assessment,Response: UnchangedSucceeded, 13:21,BP: 113/69 M,PULSE: 124,RR: 16 R,SPO2: 96 Ox,ETCO2: ,BG: ,PAIN: 0,GCS: 14, 13:21,At Destination 13:43,Call Closed Disclaimer [email or web address] Copyright 2019 [email or web address] This EMS Care Summary contains data elements from the applicable legal record (which may be displayed differently). It is designed to provide pertinent information for the following purposes: continuity of care, clinical quality, and state data reporting. The complete legal record is available to ED staff and administrators of the receiving hospital in [employer] Patient Tracker. All data is provided "as is."
[2019-01-26 13:27] VITALS: BP 142/62
[~2019-01-26 13:27] MED LIST changes: +HALDOL DEC100 MG/1 M IM; +HALOPERIDOL 5 MG5 MG PO; +HYDROXYZINE HCL25 M1 PO; +LASIX 40 MG TAB40 M2 PO; +SEROQUEL 100 M100 M1 PO; +SEROQUEL400 MG PO; +VITAMIN D2000 UNIT PO
[2019-01-26 13:53] LABS: HEMATOCRIT 37.6 % (37.0-47.0); HEMOGLOBIN 12.5 gm/dL (12.0-15.0); MCH 30.2 pg (26.0-34.0); MCHC 33.3 g/dL (28.0-37.0); MCV 90.6 fL (80.0-100.0); PLATELET COUNT 186 thou/uL (150-400); RBC 4.15 mil/uL (4.20-5.00); RDW 15.5 % (10.5-14.5); WBC 16.4 thou/uL (4.0-11.0)
[2019-01-26 13:59] LABS: URINE BILIRUBIN NEGATIVE (Negative); URINE BLOOD TRACE (Negative); URINE CLARITY CLEAR; URINE COLOR YELLOW; URINE GLUCOSE-RANDOM* NEGATIVE (Negative); URINE KETONES NEGATIVE (Negative); URINE LEUKOCYTES TRACE (Negative); URINE NITRITE POSITIVE (Negative); URINE PROTEIN (DIPSTICK) NEGATIVE (Negative); URINE UROBILINOGEN 0.2 E.U./dl (0.2-1.0)
[2019-01-26 14:11] LABS: BACTERIA >30 Many /HPF (None Seen); CASTS None Seen /LPF (None Seen); CRYSTALS None Seen /LPF (None Seen); SQUAMOUS 0-3 Few /LPF (0-3); URINE RBC 0-2 Rare /HPF (0-2); URINE WBC 0-5 Rare /HPF (0-5)
[2019-01-26 14:26] LABS: ABSOLUTE NEUTROPHILS 14.1 thou/uL (1.4-8.2)
[2019-01-26 14:38] LABS: CALCIUM 9.3 mg/dL (8.5-10.1)
[2019-01-26 14:44] LABS: ALBUMIN 3.1 g/dL (3.4-5.0); TOTAL BILIRUBIN 0.2 mg/dL (<0.1-1.0); TOTAL PROTEIN 7.4 g/dL (6.4-8.2)
[2019-01-26] MEDS ORDERED: VITAMINC500 PO (15:19)
[2019-01-26] MEDS ORDERED: DEPAKOTE500 MG PO (15:21)
[2019-01-26] MEDS ORDERED: IBUPROFEN 800800 M1 PO (15:29)
[2019-01-26] MEDS ORDERED: PHENERGAN 25 MG25 M1 PO (15:31)
[2019-01-26] MEDS ORDERED: NOVOLOG100 UNIT/1 SUBQ (15:33)
--- NOTE | 2019-01-26 16:20 | EKG ---
[place] [address] [facility] [employer] [place] [address] ELECTROCARDIOGRAM REPORT Name: IRENE SIMS Room #: 170-8 ADM IN .R.#: [id number] ������������������ Admission: 01/26/19 ������������������ Attend Phys: Makenna Escalona MD Discharge: ������������������ Date of : 58 Report #: [id number] ����������������������������������������������������������������� [id number] THIS REPORT FOR: //name// [facility] ED Test Date: 2019-01-26 Test Time: 13:43:46 Pat Name: IRENE SIMS Department: Room: 170 Gender: F Photocopier Technician: WG : 1960 Requested By: Edwardo Mccoy Order Number: [id number] MD: Georgi De Jesus Measurements Intervals [place] Rate: 120 P: 64 PA: 228 QRS: -14 QRSD: 154 T: 44 QT: 441 QTc: 624 Interpretive Statements Sinus tachycardia Prolonged PA interval Right bundle branch block Consider inferior infarct, age indeterminate Compared to ECG 09/19/2018 20:21:24 Heart rate has increased Electronically Signed On 01-26-2019 16:20:23 CDT by Georgi De Jesus [email or web address] ��������������������������������������������� <ELECTRONICALLY SIGNED> ���������������������������������������� By: Georgi De Jesus MD, [facility] ��������������������������������������������� 01/26/19 1620 1343 1343 Georgi De Jesus MD, [facility] /EPI
[2019-01-26 16:53] VITALS: BP 102/52
[2019-01-26 17:35] VITALS: BP 101/48
[2019-01-26 18:37] VITALS: BP 114/66
--- NOTE | 2019-01-26 19:30 | NUR ---
Pt came to unit from ED approx 1810. Transferred to hospital bed. 2L O2. Alert and oriented to self. Report given to jd VALERIO.
[2019-01-26 19:59] VITALS: BP 122/92
--- NOTE | 2019-01-27 02:20 | NUR ---
ASSUMED CARE AROUND 1900. AXOX4. DESAT NOTED WHILE TAKING VS. O2 NOW AT 3LPM. NO S/S ACUTE DISTRESS NOTED OR REPORTED AT THIS TIME. WILL CONT TO MONITOR FOR ANY CHANGES IN CONDITION.
[2019-01-27 05:32] VITALS: BP 100/48
[2019-01-27 06:32] LABS: HEMATOCRIT 28.9 % (37.0-47.0); MCH 30.8 pg (26.0-34.0); MCHC 33.6 g/dL (28.0-37.0); MCV 91.6 fL (80.0-100.0); RBC 3.16 mil/uL (4.20-5.00); RDW 15.8 % (10.5-14.5); WBC 9.7 thou/uL (4.0-11.0)
[2019-01-27 06:41] LABS: HEMOGLOBIN 9.7 gm/dL (12.0-15.0)
[2019-01-27 06:47] LABS: CALCIUM 8.9 mg/dL (8.5-10.1); CREATININE 0.9 mg/dL (0.6-1.0); POTASSIUM 4.1 mmol/L (3.5-5.1)
[2019-01-27 07:56] VITALS: BP 103/51
--- NOTE | 2019-01-27 09:40 | NUR ---
chart review, pt up in bed, bedside nurse setting up pt to have breakfast, noted pt on o2 2Lnc. intro to cm, transition of care and exterminator care. pt reported " live at [facility] for 2 years, uses wheel chair. able to feed her self meals, shower chair when showers. has son. i am distraught about being admitted, everyone else got to go home "/tereza. cm visited with charge nurse at [facility], pt does not wear any oxygen and will need to trapper off o2 prior to dc back to [facility]. pt has assistance with adl's. no weekend transport that is awear of."/charge nurse [facility]. will cont following as needed for dc needs. dcp [facility]: bedside nurse to call report to [phone] (let nurse at [facility], know that orders will be faxed over ). fax # [phone] to fax dc orders. [employer] to be called for transportation set up [phone] ( wheel chair) will need to request chart copy to be sent to [facility].
[2019-01-27 15:25] VITALS: BP 101/54
--- NOTE | 2019-01-27 15:53 | NUR ---
DISCHARGE PLANNING. PATIENT IS A RESIDENT AT [facility]. PLAN IS FOR PATIENT TO RETURN TO [facility] ONCE MEDICALLY READY. CLINICAL INFORMATION FAXED TO PRANAY GAITAN FOR [facility]. UNIT CM AWARE. FOLLOWING TO ASSIST WITH DISCHARGE NEEDS.
[2019-01-27 18:50] VITALS: BP 149/78
--- NOTE | 2019-01-27 19:45 | NUR ---
QUIET UNEVENTFUL DAY. DENIED PAIN. TREMORS NOTED AND NEEDS HELP WITH FEEDING. TURNED Q2H. FALL PRECAUTONS IN PLACE. IV ANTIBIOTICS CONTINUED ORDERED. SWALLOWED PILLS WITHOUT DIFFICULTY. NASAL SWABS FOR MRSA AND H1N1 SENT TO LAB.
[2019-01-28 03:08] VITALS: BP 120/48
--- NOTE | 2019-01-28 05:25 | NUR ---
ASSUMED CARE AROUND 1900. AXOX3. OBTAINED AN ORDER TO PROVIDE STRIGHT CATH FOR URINE SAMPLE COLLECTION PER PT BEING INCONTINENT. TOLERATED PROCEDURE VERY WELL. NO S/S ACUTE DISTRESS NOTED OR REPORTED AT THIS TIME. WILL CONT TO MONITOR FOR ANY CHANGES IN CONDITION.
[2019-01-28 08:00] VITALS: BP 131/82
[2019-01-28 15:00] VITALS: BP 137/61
--- NOTE | 2019-01-28 17:21 | NUR ---
1PM-7PM Received awake on bed. Due medications given as prescribed, able to swallow tablets w/o difficulty. On 02 at 2lpm via nasal cannula. A/w sputum sample. On blood sugar monitoring- taken and recorded accordingly, due insulin sliding scale given as prescribed. Pt incontinent of bowels and bladder- checked frequently and changed as needed; on external female catheter to suction. Pt turned every 2 hours, barrier cream applied. With generalized edema. On carb controlled diet- pt tolerating and finishing meals. With SL at R Upper arm and R FA- both leaking; removed and called IV nurse to put new IV cannula on pt. Pt seen by Speech therapist this PM, swallow test done and ST suggested for pt to have mechanically altered diet- order put in by ST. Vital signs stable.
[2019-01-28 19:17] VITALS: BP 138/58
--- NOTE | 2019-01-29 02:08 | NUR ---
ASSUMED CARE OF PT AT 1900HRS. PT AOX4 AND LETS NEEDS BE KNOWN. FALL PRECAUTION IN PLACE. EXTERNAL FEMALE CATH IN PLACE AND WORKING WELL. PT REPORTED SOME NAUSEA, PAIN AND GENERALIZED ITCH. PRN MEDS WERE USED TO MANAGE SYMPTOMS. VSS AND NO S/S OF ACUTE DISTRESS. WILL CONTINUE TO MONITOR.
[2019-01-29 07:56] VITALS: BP 147/87
[2019-01-29 09:45] VITALS: BP 147/87
[2019-01-29 15:29] VITALS: BP 129/78
--- NOTE | 2019-01-29 15:49 | NUR ---
The patient's lunch time blood sugar was 405. Sliding scale protocol was followed and the patient was given 12 units of insulin and was notified via online paging system. I spoke with at 1244 and he stated that he was decreasing the patient's steriod and no changes for now. Will continue to monitor the patient.
--- NOTE | 2019-01-29 17:38 | NUR ---
PATIENT HAS BEEN HALLUCINATING TODAY, STATING THAT SHE HAS SEEN "COCKROACHES AND THE STENOGRAPHIC COURT REPORTER" IN HER ROOM. AT TIMES THAT PATIENT HAS BEEN TALKING LOUDLY IN HER ROOM. THE PATIENT HAS BEEN CALM AND COOPERATIVE, COMPLAINS OF PAIN IN ER LEFT FOOT. VITAL SIGNS STABLE. WILL CONTINUE TO MONITOR.
[2019-01-29 19:15] VITALS: BP 126/68
--- NOTE | 2019-01-30 05:26 | NUR ---
ASSUMED CARE OF PT AT 1900HRS. PT IS ALERT AND ORIENTED BUT DOES HAVE SOME VISUAL AND AUDITORY HALLUCINATIONS. FALL PRECAUTIONS IN PLACE. PT TURNED Q2-3H. ABX TREATMENT CONTINUED. EXTERNAL CATHETER REPLACED THIS SHIFT. PT REPORTED SOME PAIN AND WAS TREATED WITH PRN PAIN MEDS. NO S/S OF ACUTE DISTRESS. WILL CONTINUE TO MONITOR.
--- NOTE | 2019-01-30 13:08 | HC ---
[facility] [place] [address] CONSULTATION Name: IRENE SIMS Room #: 452-P ADM IN M.R.#: [id number] Admission: 01/26/19 ������������������ Attend Phys: Makenna Escalona MD Discharge: ������������������ Date of : 58 Report #: [id number] THIS REPORT FOR: //name// CC: Samuel Escalona DATE OF SERVICE: 01/27/2019 INFECTIOUS DISEASE CONSULTATION REASON FOR CONSULTATION: Evaluate fever and pulmonary infiltrates. HISTORY OF PRESENT ILLNESS: The patient is a 58-year-old intermediate resident with bipolar disorder, post-traumatic stress disorder, schizoaffective disorder, previous stroke, anxiety, COPD. She presents with a several day history of low-grade fever, malaise, shortness of breath without cough or sputum production. She is now on oxygen per nasal cannula. She has had no pleuritic chest pain. No hemoptysis. By her history, she reports no vomiting episodes or difficulty swallowing. She has had nausea without vomiting, abdominal pain or diarrhea. She does note some discomfort with urination without hematuria, back or flank pain. Denies any rash or decubiti. She has noticed no adenopathy. No other masses. REVIEW OF SYSTEMS: A 10-point review of systems was negative other than what is described above. ALLERGIES: NITROFURANTOIN, MOXIFLOXACIN, AMOXICILLIN, CEPHALEXIN, PENICILLIN, TYLENOL, BENZTROPINE, CODEINE, LITHIUM, RESPERIDONE, SERTRALINE, ZIPRASIDONE, COMPAZINE, IBUPROFEN, ASPIRIN, PEANUT BUTTER. MEDICATIONS: As noted on her MAR. PAST MEDICAL HISTORY: Diabetes, schizoaffective disorder, hypothyroidism, hyperlipidemia, hypertension, stroke, posttraumatic stress disorder, bipolar disorder, anxiety disorder, COPD, asthma, pneumonia, osteoarthritis. FAMILY HISTORY: Noncontributory. SOCIAL HISTORY: Nonsmoker, no significant alcohol intake. She has been residing in a intermediate for the last several years. PHYSICAL EXAMINATION: VITAL SIGNS: Afebrile and hemodynamically stable. GENERAL: The patient had a fine resting tremor, upper extremities. She was alert and conversant. Oriented and pleasant. SKIN: Without rash or decubitus. No palpable adenopathy. [facility] [address] [place] [address] CONSULTATION Name: IRENE SIMS Room #: 452-P [facility] IN .R.#: [id number] Admission: 01/26/19 ������������������ Attend Phys: Makenna Escalona MD Discharge: ������������������ Date of : 58 Report #: [id number] HEENT: Eyes without scleral icterus. Mouth without mucositis. NECK: Supple. No thyromegaly or mass. LUNGS: Coarse breath sounds in the mid posterior chest. No consolidation. HEART: Regular, without murmur, gallop or rub. ABDOMEN: Soft, nontender with no hepatosplenomegaly or mass. GENITOURINARY: External genitalia without lesion. RECTAL: Not performed. BACK: Nontender with no CVA tenderness or spinal tenderness. EXTREMITIES: Without clubbing, cyanosis or edema. NEUROLOGIC: Cranial nerves intact. She had decreased strength symmetric both lower extremities. Upper extremities were strong. Sensation to touch was normal in both upper and lower extremities. Mood was calm. LABORATORY STUDIES: Creatinine 0.9. Liver function tests normal. Alkaline phosphatase 122. Hemoglobin 9.7, platelet count 155,000, white count initially 16.4 with 11% bands, now 9.7. Blood cultures are negative to date. No sputum culture. Urinalysis with a few wbc's, many bacteria. CT scan of the chest shows right upper lobe infiltrate with no enlargement hilum and right mediastinum. Review of previous CT scans reported several years ago noted some mild adenopathy. There was definitely no consolidating infiltrate. On this study, there is fairly significant infiltrate in the right upper lobe. There was also patchy changes in the lateral aspect of the right lower lobe and minor bibasilar atelectasis. IMPRESSION: A 58-year-old with schizoaffective disorder, fairly limited in her mobility, with pulmonary infiltrate most likely cause of her presentation. Aspiration, healthcare-associated pneumonia would seem most likely here. The chronicity of this process; however, is not clear. She does have associated adenopathy. I did call at the intermediate and found that her PPD was negative. This would make mycobacterial infection less likely given that this is an acute presentation within the last several days. She would still need further evaluation and we will include sputum culture if possible. Check urine antigens. Screen for fungal infection and sedimentation rate. She will be kept on IV antibiotic therapy noting her multiple drug allergies. We will follow serial chest x-rays. We will likely need followup CT scan in several months to assess her progress. If she should show any further deterioration, would consider bronchoscopy. May need pulmonary assistance for bronchoscopy at some point if things do not clear. ��������������������������������������������� <ELECTRONICALLY SIGNED> ���������������������������������������� By: Jose Barton MD ��������������������������������������������� 01/30/19 1308 1626 0035 Jose Barton MD /nt
[2019-01-30 15:09] LABS: HISTOPLASMA MYCELIAL-ID Negative (Negative)
[2019-01-30 17:06] VITALS: BP 138/62
--- NOTE | 2019-01-30 17:34 | NUR ---
Assumed pt care this am,pt's son and mother came to visit for a short while. Pt had auditory hallucination, though she was hearing a pig outside her door that was coming to visit her. Pt is easily redirected brenda. External FC in place, draining light yellow urine. Q2 turns done, pt is able to help turn herself and is able to move her legs and feet. Radha care given several times during the shift. Blood sugar checks done, insulin given as indicated. Oral medication given 2 at a time with head of bed elevated and small sips of water. Diet is well tolerated. No complaints of pain have been note noted. No signs or verbalizations of distress for tyhis shift. POC followed.
[2019-01-30 20:03] VITALS: BP 147/75
--- NOTE | 2019-01-31 02:42 | NUR ---
Assumed pt care at 1900. Pt is A/OX4,VSS. Pt does have auditory hallucination;redirected easily. Is on bedrest,repositioned every 2 hrs. Female external catheter in place and functional. Fall precautions in place. Resting quietly with no distress oxygen on at 2L/NC,will continue to monitor pt.
[2019-01-31 05:18] VITALS: BP 142/70
[2019-01-31 08:25] VITALS: BP 137/62
[2019-01-31 12:20] LABS: HEMATOCRIT 34.2 % (37.0-47.0); HEMOGLOBIN 11.4 gm/dL (12.0-15.0); MCH 30.6 pg (26.0-34.0); MCHC 33.4 g/dL (28.0-37.0); MCV 91.7 fL (80.0-100.0); PLATELET COUNT 289 thou/uL (150-400); RBC 3.73 mil/uL (4.20-5.00); RDW 15.4 % (10.5-14.5); WBC 9.9 thou/uL (4.0-11.0)
[2019-01-31 12:38] LABS: ALBUMIN 2.7 g/dL (3.4-5.0); CALCIUM 9.8 mg/dL (8.5-10.1); CREATININE 0.9 mg/dL (0.6-1.0); MAGNESIUM 1.7 mg/dL (1.8-2.4); POTASSIUM 5.3 mmol/L (3.5-5.1); TOTAL BILIRUBIN 0.1 mg/dL (<0.1-1.0)
[2019-01-31 12:54] LABS: ABSOLUTE NEUTROPHILS 8.7 thou/uL (1.4-8.2); METAMYELOCYTES 1 %; PLATELET ESTIMATE NORMAL
--- NOTE | 2019-01-31 16:04 | EKG ---
[address] [address] ELECTROCARDIOGRAM REPORT Name: WILBER SIMSJERICHO Reagan Room #: 45- ADM IN M.R.#: [id number] ������������������ Admission: 01/26/19 ������������������ Attend Phys: Makenna Escalona MD Discharge: ������������������ Date of : 58 Report #: [id number] ����������������������������������������������������������������� [id number] THIS REPORT FOR: //name// [facility] Test Date: 2019-01-31 Test Time: 14:44:16 Pat Name: IRENE SIMS Department: Room: [facility] Gender: F Multicut Line Operator: Leo RUIZ : 1960 Requested By: Margret Mtoa Order Number: [id number] MD: Corey Juan Measurements Intervals [place] Rate: 97 P: 52 AL: 171 QRS: 38 QRSD: 145 T: 15 QT: 380 QTc: 483 Interpretive Statements Sinus rhythm Right bundle branch block Baseline wander in lead(s) II Compared to ECG 01/26/2019 13:43:46 Electronically Signed On 01-31-2019 16:04:24 CDT by Corey Juan [email or web address] ��������������������������������������������� <ELECTRONICALLY SIGNED> ���������������������������������������� By: Corey Juan MD ��������������������������������������������� 01/31/19 1604 1444 1444 Corey Juan MD /[facility]
--- NOTE | 2019-01-31 16:10 | NUR ---
CARE TEAM INDICATED THAT PT NEEDED TO TRANSFER TO TELE FLOOR. PT WAS TRANSFERED TO [facility] FOR MONITORING. PHYSICIAN NOTIFIED PT'S SON. CM TO FOLLOW INDICATED WITH DC PLANNING. CLINICAL UPDATES WILL BE SENT TO [facility].
[2019-01-31 16:16] VITALS: BP 157/66
--- NOTE | 2019-01-31 16:30 | NUR ---
REPORT RECEIVED FROM IMAN SORENSEN. PT TRANSFERRED TO CCU RM #210 WITH ELEVATED LACTIC ACID LEVEL AND PROLONGED QT INTERVAL. ADMISSION DX: SEPSIS, UTI. NS FIRST LITER AND AZTREONAM INFUSING. ALERT/ORIENTED, FLAT EFFECT, SR-92, PO2-47 PER ABG, INCREASED TO 3.5 L/NC, RESP TXMENT IN PROGRESS, FEMALE CATHETER DRAINING LARGE AMOUNT CLEAR YELLOW URINE.
[2019-01-31 16:37] LABS: BE(vivo) 3.9 mmol/L (-2 to +3); HCO3 27.4 mmol/L (22.0-26.0); pH 7.487 (7.360-7.450); sO2 86.5 % (92.0-98.0)
[2019-01-31 16:45] LABS: PO2 47.3 mmHg (80.0-100.0)
[2019-01-31 20:14] VITALS: BP 139/64
--- NOTE | 2019-01-31 20:28 | NUR ---
PATIENT ALERT AND ORIENTED AND WAS ABLE TO CORRECT DATE ON WHITE BOARD IN ROOM TO CORRECT DATE. FAMILY AT BEDSIDE AND BROUGHT RAMOS. PROLONGED QT INTERVAL AND ELEVATED LACTATE. NOTIFIED DR LIMA. PATIENT MOVED TO CCU ROOM 210 REPORT GIVEN TO IMAN MORALES.
[2019-01-31 22:37] LABS: CALCIUM 8.6 mg/dL (8.5-10.1); CREATININE 0.9 mg/dL (0.6-1.0); POTASSIUM 4.7 mmol/L (3.5-5.1)
[2019-01-31 22:40] LABS: MAGNESIUM 1.9 mg/dL (1.8-2.4); PHOSPHORUS 3.2 mg/dL (2.5-4.9)
[2019-02-01] VITALS: BP 144/78
[2019-02-01 05:00] VITALS: BP 151/73
--- NOTE | 2019-02-01 05:27 | NUR ---
A/O X 3.FORGETFUL.SON IS HERE WITH PATIENT.LACTIC DECREASED FROM 5.6 TO 2.[address] TO [address] SCAN THIS SHIFT.BEDTIME BLOOD GLUCOSE IS 327.SSI AND LANTUS WAS GIVEN.ON ANTIBIOTICS AND IV FLUIDS.O2 2L NC.EXTERNAL CATH IN PLACE.MONITOR SHOWS SR WITH BBB.WILL MONITOR AND CONTINUE POC.
[2019-02-01 08:00] VITALS: BP 147/87
[2019-02-01 08:15] LABS: HEMATOCRIT 33.2 % (37.0-47.0); HEMOGLOBIN 11.1 gm/dL (12.0-15.0); MCH 30.7 pg (26.0-34.0); MCHC 33.3 g/dL (28.0-37.0); MCV 92.1 fL (80.0-100.0); RBC 3.6 mil/uL (4.20-5.00); RDW 15.2 % (10.5-14.5); WBC 10.6 thou/uL (4.0-11.0)
--- NOTE | 2019-02-01 08:41 | EKG ---
[address] [address] ELECTROCARDIOGRAM REPORT Name: IRENE SIMS Room #: 210- ADM IN M.R.#: [id number] ������������������ Admission: 01/26/19 ������������������ Attend Phys: Makenna Escalona MD Discharge: ������������������ Date of : 58 Report #: [id number] ����������������������������������������������������������������� [id number] THIS REPORT FOR: //name// [facility] Test Date: 2019-01-31 Test Time: 22:12:34 Pat Name: IRENE SIMS Department: Room: 210 P Gender: F Private Tutors And Teachers: Leo RUIZ : 1960 Requested By: Margret Mota Order Number: [id number] MD: Georgi De Jesus Measurements Intervals [place] Rate: 88 P: TN: QRS: 16 QRSD: 145 T: 11 QT: 411 QTc: 498 Interpretive Statements Sinus rhythm with occasional atrial premature complexes Right bundle branch block Compared to ECG 01/31/2019 14:44:16 Atrial premature complexes are now present Electronically Signed On 02-01-2019 8:41:42 CDT by Georgi De Jesus [email or web address] ��������������������������������������������� <ELECTRONICALLY SIGNED> ���������������������������������������� By: Georgi De Jesus MD, [facility] ��������������������������������������������� 02/01/19 0841 11 11 Georgi De Jesus MD, [facility] /EPI
--- NOTE | 2019-02-01 13:06 | 2DMMODE ---
[facility] [address] [place] [address] 2 D/M-MODE ECHOCARDIOGRAM Name: BETHANYIRENE A Room #: 210-P [facility] IN [facility]#: [id number] ������������� Admission: 01/26/19 ������������� Attend Phys: Makenna Escalona MD Discharge: ��� ������������� ��� Date of : 58 Date of Service: 02/01/19 1306 �� Report #: [id number] �������� ��������������������������������������������[id number] THIS REPORT FOR: //name// APPROVED REPORT Study performed: 02/01/2019 11:25:51 EXAM: Comprehensive 2D, Doppler, and color-flow Echocardiogram Patient Location: In-Patient Room #: 210 Status: routine BSA: 2.07 HR: 92 bpm BP: 147/87 mmHg Rhythm: Irregular Other Information Study Quality: Fair Indications COPD CVA/TIA Diabetes HLP 2D Dimensions RVDd: 32.79 mm IVSd: 10.63 (7-11mm) LVOT Diam: 19.78 (18-24mm) LVDd: 43.08 mm PWd: 8.86 (7-11mm) Ascending Ao: 30.75 (22-36mm) LVDs: 29.81 (25-40mm) IVC: 13.00 mm Volumes Left Atrial Volume (Systole) Single Plane 4CH: 49.52 mL Single Plane 2CH: 49.41 mL Aortic Valve AoV Peak Toni.: 1.42 m/s AO Peak Gr.: 8.08 mmHg LVOT Max P.64 mmHg LVOT Max V: 1.08 m/s YEYO Vmax: 2.33 cm2 Mitral Valve E/A Ratio: 0.0 [facility] [address] [place] [address] 2 D/M-MODE ECHOCARDIOGRAM Name: BETHANYIRENE Room #: 210-P [facility]#: [id number] ������������� Admission: 01/26/19 ������������� Attend Phys: Makenna Escalona MD Discharge: ��� ������������� ��� Date of : 58 Date of Service: 02/01/19 1306 �� Report #: [id number] �������� ��������������������������������������������[id number] MV E Max Toni.: 0.82 m/s MV A Toni.: 0.00 m/s IVRT: 55.36 ms Pulmonary Valve PV Peak Toni.: 1.39 m/s PV Peak Gr.: 7.73 mmHg Pulmonary Vein P Vein S: 0.47 m/s P Vein A: 0.32 m/s P Vein D: 0.41 m/s P Vein A Dur.: 101.5 msec P Vein S/D Ratio: 1.15 Tricuspid Valve TR Peak Toni.: 2.25 m/s TR Peak Gr.: 20.16 mmHg Left Ventricle The left ventricle is normal size. There is normal LV segmental wall motion. There is normal left ventricular wall thickness. The left ventricular systolic function is normal. The left ventricular ejection fraction is within the normal range. LVEF is 60%. Mild diastolic dysfunction Right Ventricle The right ventricle is normal size. The right ventricular systolic function is normal. Atria The left atrium size is normal. The right atrium size is normal. Aortic Valve The aortic valve is normal in structure. No aortic regurgitation is present. There is no aortic valvular stenosis. Mitral Valve The mitral valve is normal in structure. Mild mitral regurgitation. No evidence of mitral valve stenosis. Tricuspid Valve The tricuspid valve is normal in structure. Mild tricuspid regurgitation. Estimated PAP is 25mmHg. Pulmonic Valve Pulmonic valve is not well visualized. There is no pulmonic valvular regurgitation. [facility] [address] [place] [address] 2 D/M-MODE ECHOCARDIOGRAM Name: IRENE SIMS Room #: 210-P [facility] IN .R.#: [id number] ������������� Admission: 01/26/19 ������������� Attend Phys: Makenna Escalona MD Discharge: ��� ������������� ��� Date of : 58 Date of Service: 02/01/19 1306 �� Report #: [id number] �������� ��������������������������������������������[id number] Great Vessels The aortic root is normal in size. IVC is normal in size and collapses >50% with inspiration. Pericardium There is no pericardial effusion. <Conclusion> The left ventricular systolic function is normal. There is normal LV segmental wall motion. LVEF is 60%. Mild diastolic dysfunction The aortic valve is normal in structure. No aortic regurgitation or stenosis The mitral valve is normal in structure. Mild mitral regurgitation. Mild tricuspid regurgitation. Estimated pulmonary artery pressure of 25mmHg. There is no pericardial effusion. ��������������������������������������������� <ELECTRONICALLY SIGNED> ���������������������������������������� By: Georgi De Jesus MD, FACC ��������������������������������������������� 02/01/19 1306 1306 1306 Georgi De Jesus MD, FACC /INF
--- NOTE | 2019-02-01 13:21 | EKG ---
[address] [address] ELECTROCARDIOGRAM REPORT Name: WILBER SIMSJERICHO Reagan Room #: 210- ADM IN M.R.#: [id number] ������������������ Admission: 01/26/19 ������������������ Attend Phys: Makenna Escalona MD Discharge: ������������������ Date of : 58 Report #: [id number] ����������������������������������������������������������������� [id number] THIS REPORT FOR: //name// [facility] Test Date: 2019-02-01 Test Time: 09:06:52 Pat Name: IRENE SIMS Department: Room: 210 Gender: F Supervisor Sawmill: IDANIA : 1960 Requested By: Dariana Fry Order Number: [id number] MD: Corey Juan Measurements Intervals [place] Rate: 85 P: 51 CO: 168 QRS: 10 QRSD: 144 T: 10 QT: 434 QTc: 517 Interpretive Statements Sinus rhythm Right bundle branch block Compared to ECG 01/31/2019 22:12:34 Atrial premature complex(es) no longer present Electronically Signed On 02-01-2019 13:21:34 CDT by Corey Juan [email or web address] ��������������������������������������������� <ELECTRONICALLY SIGNED> ���������������������������������������� By: Corey Juan MD ��������������������������������������������� 02/01/19 1321 09 5 Corey Juan MD /[place]
--- NOTE | 2019-02-01 15:10 | NUR ---
FAXED CLINICAL UPDATE TO [facility] SPOKE WITH [facility] AND THEIR FAX MACHINE IS BEING WORKED ON RIGHT NOW SO SHE WILL LOOK FOR IT ONCE WORKING. DCP TO FOLLOW.
--- NOTE | 2019-02-01 16:44 | NUR ---
ASSESSMENT CHARTED - MEDS PER MAR - PT NPO THIS AM - ADVANCED TO FULL LIQUID DIET FOR LUNCH - DEBORAH WELL - WILL RECEIVE [facility] - HH AND CC DINNER. PT GIVEN 500CC OF GOLYTELY PREP FOR CT SCANN SHOWING THAT PATIENT WITH OBSTIPATION/CONSTIPATION. PT HAS HAD [id number] BOWEL MOVTS THIS SHIFT - LARGE BROWN SOFT STOOL. PATIENT ALSO INCONTINENT OF URINE MULITPLE TIME - PATIENT REFUSED CATH THAT WAS ORDERED STAING THAT SHE COULD ONLY USE A PEDIATRIC CATH WHICH WE DO NOT HAVE ANY OF. SPOKE WITH HE IABOUT USING A CAUDE CATH VERY SMALL SIZE AND SHE CONTINUED TO REFUSE. ECHOCOMPLETED THIS AM. PT WITH VERY FLAT AFFECT. NO CO'S AT THE PRESENT TIME.
[2019-02-01 16:47] VITALS: BP 136/61
[2019-02-01 20:06] LABS: ADENOVIRUS Negative (Negative); INFLUENZA B Negative (Negative); METAPNEUMOVIRUS Negative (Negative); PARAINFLUENZA 1 Negative (Negative); PARAINFLUENZA 2 Negative (Negative); PARAINFLUENZA 3 Negative (Negative); RHINOVIRUS Positive (Negative); RSV A Negative (Negative); RSV B Negative (Negative)
[2019-02-01 20:35] VITALS: BP 129/62
--- NOTE | 2019-02-02 03:50 | NUR ---
ASSUMED PT CARE AT 1900. PT A/OX4, ANXIOUS, VITAL SIGNS STABLE, ASSESSMENT CHARTED. NO COMPLAINTS OF SOB, NO COMPLAINTS OF PAIN. ON 2L O2 THROUGHOUT THE NIGHT. FALL PRECAUTIONS MAINTINED, F1CLWBS ENCOURGAED. NPO AT MIDNIGHT FOR PROCEDURE IN AM. RESTED WELL THROUGH THE NIGHT,PROGRESSING TOWARD PLAN OF CARE, WILL CONTINUE TO MONITOR.
[2019-02-02 06:01] VITALS: BP 135/71
[2019-02-02 08:19] VITALS: BP 150/75
--- NOTE | 2019-02-02 08:38 | EKG ---
[address] [address] ELECTROCARDIOGRAM REPORT Name: IRENE SIMS Room #: 210- ADM IN M.R.#: [id number] ������������������ Admission: 01/26/19 ������������������ Attend Phys: Makenna Escalona MD Discharge: ������������������ Date of : 58 Report #: [id number] ����������������������������������������������������������������� [id number] THIS REPORT FOR: //name// [facility] Test Date: 2019-02-02 Test Time: 08:23:10 Pat Name: IRENE SIMS Department: Room: 210 Gender: F It Consulting Manager: IDANIA : 1960 Requested By: Dariana Fry Order Number: [id number] MD: Georgi De Jesus Measurements Intervals [place] Rate: 82 P: 44 TN: 172 QRS: 24 QRSD: 146 T: 16 QT: 439 QTc: 513 Interpretive Statements Sinus rhythm Right bundle branch block Compared to ECG 02/01/2019 09:06:52 No significant changes Electronically Signed On 02-02-2019 8:37:52 CDT by Georgi De Jesus [email or web address] ��������������������������������������������� <ELECTRONICALLY SIGNED> ���������������������������������������� By: Georgi De Jesus MD, [facility] ��������������������������������������������� 02/02/19 0837 2 2 Georgi De Jesus MD, FAC /EPI
[2019-02-02 12:46] VITALS: BP 151/70
--- NOTE | 2019-02-02 13:15 | NUR ---
Assess for length of stay. Admit with pneumonia. Hx diabetes, on steroids which are aggravating BG up to 300s. On carb control diet, eating 100% meals, and on glargine and ss insulin. Wts 202-205 lb with an outlyer weight of 225 lb. Low nutrition risk
[2019-02-02 16:48] VITALS: BP 146/73
[2019-02-02 19:02] VITALS: BP 159/77
[2019-02-02 22:10] LABS: HISTOPLASMA MYCELIAL-CF Negative (Neg:<1:2)
--- NOTE | 2019-02-03 04:13 | NUR ---
PATIENT ALERT AND ORIENTED X4, FORGETFUL AT TIMES. SINUS RHYTHM ON EXCAVATOR BACKHOE OPERATOR. ON 2L NASAL CANNULA. TOLERATING DIET. PATIENT INCONTINENT. BLOOD SUGAR MONITORED. PATIENT UPDATED ON THE PLAN OF CARE. NO SIGNS OF ACUTE DISTRESS NOTED AT THIS TIME. WILL CONTINUE TO MONITOR.
[2019-02-03 04:45] VITALS: BP 139/72
[2019-02-03 07:48] VITALS: BP 154/77
[2019-02-03 10:46] LABS: HEMATOCRIT 36.3 % (37.0-47.0); HEMOGLOBIN 11.8 gm/dL (12.0-15.0); MCH 30.2 pg (26.0-34.0); MCHC 32.5 g/dL (28.0-37.0); MCV 93.1 fL (80.0-100.0); PLATELET COUNT 359 thou/uL (150-400); RBC 3.89 mil/uL (4.20-5.00); RDW 15.5 % (10.5-14.5)
[2019-02-03 11:03] LABS: ALBUMIN 2.5 g/dL (3.4-5.0); CALCIUM 8.9 mg/dL (8.5-10.1); CREATININE 0.6 mg/dL (0.6-1.0); MAGNESIUM 1.7 mg/dL (1.8-2.4); POTASSIUM 4.9 mmol/L (3.5-5.1); TOTAL BILIRUBIN 0.2 mg/dL (<0.1-1.0); TOTAL PROTEIN 6.2 g/dL (6.4-8.2)
[2019-02-03 11:27] LABS: ABSOLUTE NEUTROPHILS 6.6 thou/uL (1.4-8.2); ANISOCYTOSIS 1+; METAMYELOCYTES 4 %; MYELOCYTES 2 %
--- NOTE | 2019-02-03 13:25 | NUR ---
Pt on procedure- bronchoscopy during report as per bridge rigger nurse. A+O. On O2 at 2lpm via nasal cannula, skin behind ears checked- intact; With NS at 125cc/hr, infusing well thru her L upper arm- intact and flushing well. On blood sugar monitoring- taken and recorded accordingly. With bilateral leg and bilateral arm edema- extremities kept elevated and pt turned regularly. With external loya catheter connected to suction in place, output measured and recorded accordingly. Nystatin applied to pt's groin and stomach skin folds. Assisted in ADLs. Still a/w sputum sample. with insulin sliding scale prescribed. Pt came back to flores from Bronchoscopy, post procedure VS taken; on Bipap- RT at bedside, as per Dr Berger to have pt on Bipap until fully awake, vital signs stable. Pt fully awake around 11am, RT aware and shifted pt back to O2 at 2lpm via nasal cannula, missed medications from this AM given to pt. For OT/PT evaluation. As per report from PACU nurse, bronchoscopy + biopsy done to patient. Incontinent of bowels/bladder- pt checked frequently and changed as needed.
--- NOTE | 2019-02-03 14:50 | EKG ---
[address] [address] ELECTROCARDIOGRAM REPORT Name: IRENE SIMS Room #: 210- ADM IN M.R.#: [id number] ������������������ Admission: 01/26/19 ������������������ Attend Phys: Makenna Escalona MD Discharge: ������������������ Date of : 58 Report #: [id number] ����������������������������������������������������������������� [id number] THIS REPORT FOR: //name// 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1960 Requested By: Dariana Fry Order Number: [id number] MD: Arnaldo Lane Measurements Intervals [place] Rate: 72 P: 59 ID: 170 QRS: 63 QRSD: 140 T: 30 QT: 433 QTc: 474 Interpretive Statements Sinus rhythm Right bundle branch block Baseline wander in lead(s) V5 Compared to ECG 02/02/2019 08:23:10 No significant changes Electronically Signed On 02-03-2019 14:50:[address] [email or web address] ��������������������������������������������� <ELECTRONICALLY SIGNED> ���������������������������������������� By: Arnaldo Lane MD ��������������������������������������������� 02/03/[address] MD /[place]
[2019-02-03 17:11] VITALS: BP 147/87
[2019-02-03 20:00] VITALS: BP 126/61
[2019-02-03 22:08] LABS: INFLUENZA A Negative (Negative)
[2019-02-04 00:45] VITALS: BP 127/60
[2019-02-04 04:45] VITALS: BP 127/64
--- NOTE | 2019-02-04 06:06 | NUR ---
A/O X 4.PAIN WELL CONTROLLED.REPOSITIONED Q2 HOURS AND NEEDED.EXTERNAL CATH INTACT.BEDTIME BLOOD GLUCOSE IS 313.SSI AND LANTUS GIVEN.MONITOR SHOWS SINUS RHYTHM.WILL CONTINUE POC.
[2019-02-04 08:00] VITALS: BP 125/62
--- NOTE | 2019-02-04 11:15 | EKG ---
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 : 1960 Requested By: Dariana Fry Order Number: [id number] MD: Arnaldo Lane Measurements Intervals [place] Rate: 74 P: 46 [place]: 179 QRS: 26 QRSD: 141 T: 10 QT: 445 QTc: 494 Interpretive Statements Sinus rhythm Right bundle branch block Compared to ECG 02/03/2019 10:43:39 No significant changes Electronically Signed On 02-04-2019 11:15:[address] [email or web address] ��������������������������������������������� <ELECTRONICALLY SIGNED> ���������������������������������������� By: Arnaldo Lane MD ��������������������������������������������� 02/04/[address] MD /[place]
[2019-02-04 12:00] VITALS: BP 143/75
[2019-02-04 16:00] VITALS: BP 145/59
[2019-02-04 20:10] VITALS: BP 136/73
--- NOTE | 2019-02-04 20:17 | NUR ---
ASSUMED CARE OF PATIENT AT 0700. ASSESSMENTS CHARTED. EXTERNAL FEMALE CATHETER BEING USED SUCCESSFULLY. BLOOD SUGARS COLLECTED AC&HS. PATIENT COMPLIANT WITH DIRECTIONS. PATIENT REFUSES Q2 TURNS. CONTINUE WITH POC.
[2019-02-05 00:45] VITALS: BP 139/65
--- NOTE | 2019-02-05 03:02 | NUR ---
ASSUMED CARE AROUND 1900. AXOX3 WITH OCCASIONAL CONFUSION. EASILY REDIRECTED AND FOLLOWS COMMANDS VERY WELL. NO S/S ACUTE DISTRESS NOTED OR REPORTED AT THIS TIME. WILL CONT TO MONITOR FOR ANY CHANGES IN CONDITIN.
[2019-02-05 04:40] VITALS: BP 158/84
[2019-02-05 05:28] LABS: BASOPHILS 0.1 % (0.0-2.0); HEMATOCRIT 33.7 % (37.0-47.0); HEMOGLOBIN 10.9 gm/dL (12.0-15.0); LYMPHOCYTES 10.4 % (24.0-44.0); MCH 30.2 pg (26.0-34.0); MCHC 32.5 g/dL (28.0-37.0); MONOCYTES 4.2 % (1.0-8.0); PLATELET COUNT 338 thou/uL (150-400); POLYS 85.3 % (36.0-66.0); RBC 3.62 mil/uL (4.20-5.00); RDW 15.6 % (10.5-14.5); WBC 9.3 thou/uL (4.0-11.0)
[2019-02-05 05:35] LABS: ALBUMIN 2.4 g/dL (3.4-5.0); CALCIUM 8.9 mg/dL (8.5-10.1); CREATININE 0.7 mg/dL (0.6-1.0); MAGNESIUM 1.8 mg/dL (1.8-2.4); PHOSPHORUS 3.2 mg/dL (2.5-4.9); POTASSIUM 4.9 mmol/L (3.5-5.1); TOTAL BILIRUBIN 0.2 mg/dL (<0.1-1.0); TOTAL PROTEIN 5.9 g/dL (6.4-8.2)
[2019-02-05 07:52] VITALS: BP 166/81
--- NOTE | 2019-02-05 10:57 | EKG ---
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 : 1960 Requested By: Dariana Fry Order Number: [id number] MD: Arnaldo Lane Measurements Intervals [place] Rate: 72 P: 53 [place]: 182 QRS: 38 QRSD: 144 T: 15 QT: 448 QTc: 491 Interpretive Statements Sinus rhythm Right bundle branch block Baseline wander in lead(s) V2 Compared to ECG 02/04/2019 07:07:23 No significant changes Electronically Signed On 02-05-2019 10:57:[address] [email or web address] ��������������������������������������������� <ELECTRONICALLY SIGNED> ���������������������������������������� By: Arnaldo Lane MD ��������������������������������������������� 02/05/[address] MD /[place]
[2019-02-05 11:36] VITALS: BP 136/61
[2019-02-05 15:54] VITALS: BP 144/85
[2019-02-05 20:16] VITALS: BP 135/61
--- NOTE | 2019-02-05 20:17 | NUR ---
PT ARRIVED ON UNIT AT APPROX 1545 PT ALERT XS 4 NO PAIN OR RESP DISTRESS. VS WEIGHT AND HEIGHT IN CHART. FLUIDS INFUSING ORDERED. TOOK SCEDULED MEDS ORDERED. LUNGS CTA / DIM BS' POSITIVE XS 4 QUADS. 2L/NC EXTERNAL CATH ORDERED. AC AND HS ACCU CHECKS S/S ORDERED. PT IS PLEASANT AND COOPERATIVE,
[2019-02-06 04:54] VITALS: BP 128/67
[2019-02-06 07:55] VITALS: BP 145/86
--- NOTE | 2019-02-06 08:21 | NUR ---
PT LYING IN BED. REMAINS INCONTINENT. DENIES PAIN. RESTING COMFORTABLY. NO NEEDS VOICED. CALL LIGHT WITHIN REACH. WILL CONTINUE TO PROVIDE FREQUENT OBSERVATION.
--- NOTE | 2019-02-06 08:26 | EKG ---
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 ��������������������������������������������� 02/06/19824 1 1 Georgi De Jesus MD, [facility] /[place]
[2019-02-06 09:49] VITALS: BP 128/67
[2019-02-06] MEDS ORDERED: DOXYCYCLINE HYC50 MG PO (11:55)
[2019-02-06] MEDS ORDERED: SEROQUEL 100 M100 M1 PO (11:55)
--- NOTE | 2019-02-06 13:21 | NUR ---
PT DISCHARGING TODAY BACK TO [facility] FAXED DC ORDERS/SUMMARY TO FACILITY SPOKE WITH TAYLOR AND RECEIVED CONFIRMATION. DCP SET UP TRANSPORTATION THROUGH [facility] TRIP #[id number] VIA STRETCHER VAN (3HR WINDOW) SO SURFACE MOUNT TECHNOLOGY OPERATOR BY 1600 TODAY. PT TO NOTIFY FAMILY. UNIT NOTIFIED AND CHART COPY PER US. RN TO CALL REPORT TO [phone].
--- NOTE | 2019-02-06 14:45 | NUR ---
Assumed pt care at 7am.Pt in bed for all meals.Assessment completed.vss. Dr Hough here,dc order noted.web content & social media manager arranged for transport.Attempt made x2 to call report to [facility] but no response.At 1445,pt left per ambulance with all her personal belongings except her street cloth that was left on 2n.Will send to pt when found by security.
--- NOTE | 2019-02-06 16:06 | PATH ---
[facility] [address] [place] [address] PATHOLOGY RPT PROCEDURE Name: IRENE SIMS Room #: 430-P [facility] IN ..#: [id number] ������������������ Admission: 01/26/19 ������������������ Date of : 58 Discharge: 02/06/19 Report #: [id number] Path Case #: [id number] Note [facility] Accession Number: [id number] TESTS RESULT FLAG UNITS REF RANGE LAB Clinician Provided Cytology Information No. of containers..01 Other (Miscellaneous) Source: RUL BRUSH SLIDES ONL DIAGNOSIS: 02 RUL BRUSH SLIDES ONL NEGATIVE FOR MALIGNANT CELLS. NORMAL BRONCHIAL CELLS AND MACROPHAGES ARE PRESENT. INTERPRETATION LIMITED BY AIR-DRYING ARTIFACT. Pathologist ICD10: 02 A41.9 Signed out by: 02 Kelsie Smith MD, Pathologist NPI- [id number] Performed by: 01 Shan Felipe Motor Grader Operator (ASC) FLAG LEGEND: L-Low Normal,H-High Normal,LL-Alert Low,HH-Alert High <-Panic Low,>-Panic High,A-Abnormal,AA-Critical Abnormal Performed at: [address] [place] [address] Graham Borja MD, [address] [address] Kelsie Smith MD, Specimen Comment: A courtesy copy of this report has been sent to Specimen Comment: [phone], . Specimen Comment: Report sent to DR WILLIS / DR BROWN Performed at: [address], [place], [place] [id number] MD Graham Borja MD Phone: [phone]
--- NOTE | 2019-02-06 16:06 | PATH ---
[facility] [address] [email or web address] [address] PATHOLOGY RPT PROCEDURE Name: IRENE SIMS Room #: 430-P [facility] IN ..#: [id number] ������������������ Admission: 01/26/19 ������������������ Date of : 58 Discharge: 02/06/19 Report #: [id number] Path Case #: [id number] Note [facility] Accession Number: [id number] TESTS RESULT FLAG UNITS REF RANGE LAB Clinician Provided Cytology Information No. of containers..01 Other (Miscellaneous) Source: RUL BRUSHING TIP ONL DIAGNOSIS: RUL BRUSHING TIP ONL NEGATIVE FOR MALIGNANT CELLS. REACTIVE BRONCHIAL CELLS ARE PRESENT. Pathologist ICD10: 02 A41.9 Signed out by: Kelsie Smith MD, Pathologist NPI- [id number] Performed by: Shan Felipe Tanbark Peeler ([facility]) Gross description: 01 21 ML, LT PINK, CLEAR /LCS FLAG LEGEND: L-Low Normal,H-High Normal,LL-Alert Low,HH-Alert High <-Panic Low,>-Panic High,A-Abnormal,AA-Critical Abnormal Performed at: [address] [place] [address] Graham Borja MD, [address] [address] Kelsie Smith MD, Performed at: [address], [place], [place] [id number] MD Graham Borja MD Phone: [phone]
== END 2019-02-06 15:32 | DRG 871 ==
LOC: ER 13:27 → 4W 15:17 → EROBS 15:17 → 4W 17:35 → 2N 01-31 16:15 → 4E 02-05 15:51
PROVIDERS: Emergency Medicine; Internal Medicine; Specialist; ADMIT Internal Medicine
PROC: 0B9C8ZX Drainage of Right Upper Lung Lobe, Via Natural or Artificial Opening Endoscopic, Diagnostic (ICD-10-PCS; principal; 2019-02-03)
PROC: 0BD48ZX Extraction of Right Upper Lobe Bronchus, Via Natural or Artificial Opening Endoscopic, Diagnostic (ICD-10-PCS; principal; 2019-02-03)
DX: A41.9 Sepsis, unspecified organism (principal); J18.9 Pneumonia, unspecified organism; J96.21 Acute and chronic respiratory failure with hypoxia; J44.0 Chronic obstructive pulmonary disease with (acute) lower respiratory infection; N30.90 Cystitis, unspecified without hematuria; E11.9 Type 2 diabetes mellitus without complications; I45.81 Long QT syndrome; I45.10 Unspecified right bundle-branch block; E78.5 Hyperlipidemia, unspecified; K59.00 Constipation, unspecified; R59.1 Generalized enlarged lymph nodes; E66.9 Obesity, unspecified; R33.9 Retention of urine, unspecified; F25.9 Schizoaffective disorder, unspecified; D63.8 Anemia in other chronic diseases classified elsewhere; E03.9 Hypothyroidism, unspecified; I10 Essential (primary) hypertension; F41.9 Anxiety disorder, unspecified; M19.90 Unspecified osteoarthritis, unspecified site; F31.9 Bipolar disorder, unspecified; F43.10 Post-traumatic stress disorder, unspecified; Z88.0 Allergy status to penicillin; Z88.8 Allergy status to other drugs, medicaments and biological substances; Z88.6 Allergy status to analgesic agent; Z88.1 Allergy status to other antibiotic agents; Z91.012 Allergy to eggs; Z88.5 Allergy status to narcotic agent; Z86.73 Personal history of transient ischemic attack (TIA), and cerebral infarction without residual deficits; Z79.84 Long term (current) use of oral hypoglycemic drugs; Z91.010 Allergy to peanuts; Z68.35 Body mass index [BMI] 35.0-35.9, adult; Z95.810 Presence of automatic (implantable) cardiac defibrillator
CPT/HCPCS: 10040; 10045; 10081; 10783; 50010; 62110; 62900; 70005